=== PATIENT | male | born 1970 | race Caucasian/White ===

== ENCOUNTER 2022-02-03 12:25 | Emergency (ER) | payer BC ==
[~2022-02-03] VITALS: Ht 177.8 cm; Wt 110.7 kg
[2022-02-03] MEDS ORDERED: LIPITOR10 MG PO (13:14)
[2022-02-03] MEDS ORDERED: METFORMIN HCL500 M3 PO (13:14)
[2022-02-03] MEDS ORDERED: LORAZEPAM1 MG PO (13:14)
[2022-02-03] MEDS ORDERED: SEMGLEE (Y100 UNIT/2 SQ (13:15)
[2022-02-03] MEDS ORDERED: LISINOPRIL10 MG PO (13:15)
[2022-02-03] MEDS ORDERED: AMARYL4 MG PO (13:16)
[2022-02-03] MEDS ORDERED: NAPROSYN500 MG PO (14:06)
[2022-02-03] MEDS ORDERED: LIDODERM1 EACH TOP (14:06)
== END 2022-02-03 14:53 | disposition home or self-care (01) ==
LOC: ED 12:25
DX: M77.8 Other enthesopathies, not elsewhere classified (principal); E11.9 Type 2 diabetes mellitus without complications; I10 Essential (primary) hypertension; E78.00 Pure hypercholesterolemia, unspecified; Z79.899 Other long term (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 therapy; Z79.4 Long term (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 of insulin
CPT/HCPCS: 96372; 99283; A9270; J1885

== ENCOUNTER 2022-02-27 23:53 | Emergency (ER) | payer BC ==
[~2022-02-27] VITALS: Ht 177.8 cm; Wt 111.0 kg
[~2022-02-27 23:53] MED LIST: AMARYL4 MG PO; LIDODERM1 EACH TOP; LIPITOR10 MG PO; LISINOPRIL10 MG PO; LORAZEPAM1 MG PO; METFORMIN HCL500 M3 PO; NAPROSYN500 MG PO; SEMGLEE (Y100 UNIT/2 SQ
--- OUTSIDE RECORDS SUMMARY | 2022-02-27 23:58 | XMS ---
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 Tamera has no Care Guidelines for this patient. [facility] (12 MO.) [facility] NOTE: Visits indicate total known visits. ED/C VISIT TRACKING (12 MO.) [facility] COMPLAINT: - LEFT ANKLE PAIN 02/03/2022 12:[address] [facility] [place] TYPE: Emergency COMPLAINT: - R SHOULDER PAIN DIAGNOSES: - Type 2 diabetes mellitus without complications - Other residential (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 therapy - Pure hypercholesterolemia, unspecified - Other enthesopathies, not elsewhere classified - Essential (primary) hypertension - Pain in right shoulder - nursing home (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 of insulin INPATIENT VISIT TRACKING (12 MO.) No inpatient visits to display in this time frame [email or web address]
[2022-02-28] MEDS ORDERED: OMEPRAZOLE40 MG PO (00:09)
== END 2022-02-28 00:42 | disposition home or self-care (01) ==
LOC: ED 23:53
DX: M25.572 Pain in left ankle and joints of left foot (principal); I10 Essential (primary) hypertension; E11.9 Type 2 diabetes mellitus without complications; E78.00 Pure hypercholesterolemia, unspecified; Z79.899 Other long term (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 therapy; Z79.4 Long term (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 of insulin
CPT/HCPCS: 73610; 99283-25

== ENCOUNTER 2022-10-31 21:02 | Emergency (ER) | payer BC ==
[~2022-10-31] VITALS: Ht 172.7 cm; Wt 112.4 kg
--- OUTSIDE RECORDS SUMMARY | ~2022-10-31 | XMS | Continuity of Care Document ---
Demographics + + + | Address | [address] | | | [place] [address] | + + + | Preferred Language | Unknown | + + + | Marital Status | Never | + + + | Faith Affiliation | Unknown | + + + | Race | White | + + + | Ethnic Group | Not or | + + + Author + + + | Author | [facility] | + + + | Organization | [facility] | + + + | Address | [address] | | | [place] [address] | + + + | Phone | | + + + Care Team Providers + + + + | Care Renal Case Manager Name | Role | Phone | + + + + Unavailable | Unavailable | + + + + Unavailable | Unavailable | + + + + Unavailable | Unavailable | + + + + Unavailable | Unavailable | + + + + Allergies and Intolerances + + + + + + | date | description | facility | reaction | severity | + + + + + + | (no date) | Mild [facility] (no reaction[facility] | (no severity) | [facility] | | | + + + + + + | (no date) | TUBERCULIN | [facility] | (no reaction) | (no severity) | | | | [facility] | | | | | | MEDICINE | | | + + + + + + | (no date) | TUBERCULIN | [facility] | (no reaction) | (no severity) | | | [facility] | | | | | | [facility] | | | | | | [facility] | | | | | | | | | + + + + + + | (no date) | TUBERCULIN | [facility] | (no reaction) | (no severity) | | | | [facility] | | | | | | [facility] | | | | | | REHAB | | | + + + + + + | (no date) | TUBERCULIN | [facility] | (no reaction) | (no severity) | | | | [facility] | | | | | | PHYSICAL | | | | | | THERAPY | | | + + + + + + | (no date) | TUBERCULIN | [facility] | (no reaction) | (no severity) | | | | INTERNAL | | | | | | MEDICINE | | | + + + + + + | (no date) | TUBERCULIN | [facility] | (no reaction) | (no severity) | | | | [facility] | | | | | | [facility] | | | | | | [facility] | | | | | | | | | + + + + + + | (no date) | TUBERCULIN | [facility] | (no reaction) | (no severity) | | | | [facility] | | | | | | [facility] WORK[facility] | | | | | | REHAB | | | + + + + + + | (no date) | TUBERCULIN | [facility] | (no reaction) | (no severity) | | | | [facility] | | | | | | PHYSICAL | | | | | | THERAPY | | | + + + + + + | (no date) | TUBERCULIN | [facility] | (no reaction) | (no severity) | | | TESTS | INTERNAL | | | | | | MEDICINE | | | + + + + + + | (no date) | TUBERCULIN | [facility] | (no reaction) | (no severity) | | | TESTS | [facility] | | | | | | [facility] | | | | | | [facility] | | | | | | | | | + + + + + + | (no date) | TUBERCULIN | [facility] | (no reaction) | (no severity) | | | TESTS | [facility] | | | | | | [facility] WORK[facility] | | | | | | REHAB | | | + + + + + + | (no date) | TUBERCULIN | [facility] | (no reaction) | (no severity) | | | TESTS | [facility] | | | | | | PHYSICAL | | | | | | THERAPY | | | + + + + + + | (no date) | TB SKIN SERUM | [facility] | (no reaction) | (no severity) | + + + + + + Encounters No information. Functional Status No information. Immunizations No information. Medications + + + + | date | description | facility | + + + + | 2022-02-03 00:00 | Lidocaine | [facility] | + + + + | 2022-02-03 00:00 | NAPROXEN | [facility] | + + + + | 2022-02-03 00:00 | GLIMEPIRIDE | [facility] | + + + + | 2022-02-28 00:00 | GLIMEPIRIDE | [facility] | + + + + | 2022-02-03 00:00 | Metformin HCl | [facility] | + + + + | 2022-02-28 00:00 | Metformin HCl | [facility] | + + + + | 2020-01-16 00:00 | ibuprofen 600 mg oral | [facility] | | | tablet | MEDICINE | + + + + | 2020-01-16 00:00 | ibuprofen 600 mg oral | [facility] | | | tablet | [facility] | + + + + | 2020-01-16 00:00 | ibuprofen 600 mg oral | [facility] | | | tablet | [facility] | + + + + | 2020-01-16 00:00 | ibuprofen 600 mg oral | [facility] | | | tablet | CTR [facility] | + + + + | 2022-02-03 00:00 | LORAZEPAM | [facility] | + + + + | 2022-02-28 00:00 | OMEPRAZOLE | [facility] | + + + + | 2009-06-24 00:00 | omeprazole 40 mg delayed | [facility] | | | release oral capsule | MEDICINE | + + + + | 2009-06-24 00:00 | omeprazole 40 mg delayed | [facility] | | | release oral capsule | [facility] | + + + + | 2009-06-24 00:00 | omeprazole 40 mg delayed | [facility] | | | release oral capsule | [facility] | + + + + | 2009-06-24 00:00 | omeprazole 40 mg delayed | [facility] | | | release oral capsule | [facility] | + + + + | 2022-02-03 00:00 | Insulin Glargine-Yfgn | [facility] | + + + + | 2022-02-28 00:00 | Insulin Glargine-Yfgn | [facility] | + + + + | 2020-04-05 00:00 | atorvastatin 80 mg oral | [facility] | | | tablet | MEDICINE | + + + + | 2020-04-05 00:00 | atorvastatin 80 mg oral | [facility] | | | tablet | [facility] | + + + + | 2020-04-05 00:00 | atorvastatin 80 mg oral | [facility] | | | tablet | [facility] | + + + + | 2022-02-03 00:00 | LISINOPRIL | [facility] | + + + + | 2022-02-28 00:00 | LISINOPRIL | [facility] | + + + + | 2020-01-18 00:00 | atorvastatin calcium 10 mg | [facility] | | | oral tablet | MEDICINE | + + + + | 2020-01-18 00:00 | atorvastatin calcium 10 mg | [facility] | | | oral tablet | [facility] | + + + + | 2022-02-03 00:00 | ATORVASTATIN | [facility] | + + + + | 2022-02-28 00:00 | ATORVASTATIN | [facility] | + + + + | 2020-04-05 00:00 | metformin hydrochloride | [facility] | | | 500 mg oral tablet | MEDICINE | + + + + | 2020-04-05 00:00 | metformin hydrochloride | [facility] | | | 500 mg oral tablet | [facility] | + + + + | 2020-04-05 00:00 | metformin hydrochloride | [facility] | | | 500 mg oral tablet | [facility] | + + + + Problems + + + + | date | description | facility | + + + + | 1990-03-01 00:00 | gastro-esophageal reflux | [facility] | | | disease | MEDICINE | + + + + | 1990-03-01 00:00 | gastro-esophageal reflux | [facility] | | | disease | [facility] | + + + + | 1990-03-01 00:00 | gastro-esophageal reflux | [facility] | | | disease | [facility] | + + + + | 1990-03-01 00:00 | gastro-esophageal reflux | [facility] | | | disease | [facility] | + + + + | 1990-03-01 00:00 | GERD (gastroesophageal | [facility] | | | reflux disease) | MEDICINE | + + + + | 1990-03-01 00:00 | GERD (gastroesophageal | [facility] | | | reflux disease) | [facility] | + + + + | 1990-03-01 00:00 | GERD (gastroesophageal | [facility] | | | reflux disease) | [facility] | + + + + | 1990-03-01 00:00 | GERD (gastroesophageal | [facility] | | | reflux disease) | [facility] | + + + + | 2020-01-18 00:00 | body mass index 30+ - | [facility] | | | obesity (finding) | MEDICINE | + + + + | 2020-01-18 00:00 | body mass index 30+ - | [facility] | | | obesity (finding) | [facility] | + + + + | 2020-01-18 00:00 | body mass index 30+ - | [facility] | | | obesity (finding) | [facility] | + + + + | 2020-01-18 00:00 | body mass index 30+ - | [facility] | | | obesity (finding) | [facility] | + + + + | 2020-01-18 00:00 | hld - hyperlipidemia | [facility] | | | | MEDICINE | + + + + | 2020-01-18 00:00 | hld - hyperlipidemia | [facility] | | | | [facility] | + + + + | 2020-01-18 00:00 | joint pain (finding) | [facility] | | | | MEDICINE | + + + + | 2020-01-18 00:00 | joint pain (finding) | [facility] | | | | [facility] | + + + + | 2020-01-18 00:00 | joint pain (finding) | [facility] | | | | [facility] | + + + + | 2020-01-18 00:00 | joint pain (finding) | [facility] | | | | [facility] | + + + + | 2020-01-18 00:00 | prediabetes (finding) | [facility] | | | | MEDICINE | + + + + | 2020-01-18 00:00 | prediabetes (finding) | [facility] | | | | [facility] | + + + + | 2020-01-18 00:00 | prediabetes (finding) | [facility] | | | | [facility] | + + + + | 2020-01-18 00:00 | prediabetes (finding) | [facility] | | | | [facility] | + + + + | 2020-01-18 00:00 | sleep apnea (disorder) | [facility] | | | | MEDICINE | + + + + | 2020-01-18 00:00 | sleep apnea (disorder) | [facility] | | | | [facility] | + + + + | 2020-01-18 00:00 | sleep apnea (disorder) | [facility] | | | | [facility] | + + + + | 2020-01-18 00:00 | sleep apnea (disorder) | [facility] | | | | [facility] | + + + + | 2020-01-18 00:00 | Obesity (BMI 30-39.9) | [facility] | | | | MEDICINE | + + + + | 2020-01-18 00:00 | Obesity (BMI 30-39.9) | [facility] | | | | [facility] | + + + + | 2020-01-18 00:00 | Obesity (BMI 30-39.9) | [facility] | | | | [facility] | + + + + | 2020-01-18 00:00 | Obesity (BMI 30-39.9) | [facility] | | | | [facility] | + + + + | 2020-01-18 00:00 | Hyperlipidemia | [facility] | | | | MEDICINE | + + + + | 2020-01-18 00:00 | Hyperlipidemia | [facility] | | | | [facility] | + + + + | 2020-01-18 00:00 | Sleep apnea | [facility] | | | | MEDICINE | + + + + | 2020-01-18 00:00 | Sleep apnea | [facility] | | | | [facility] | + + + + | 2020-01-18 00:00 | Sleep apnea | [facility] | | | | [facility] | + + + + | 2020-01-18 00:00 | Sleep apnea | [facility] | | | | [facility] | + + + + | 2020-01-18 00:00 | Joint pain | [facility] | | | | MEDICINE | + + + + | 2020-01-18 00:00 | Joint pain | [facility] | | | | [facility] | + + + + | 2020-01-18 00:00 | Joint pain | [facility] | | | | [facility] | + + + + | 2020-01-18 00:00 | Joint pain | [facility] | | | | [facility] | + + + + | 2020-01-18 00:00 | Right knee pain | [facility] | | | | MEDICINE | + + + + | 2020-01-18 00:00 | Right knee pain | [facility] | | | | [facility] | + + + + | 2020-01-18 00:00 | Right knee pain | [facility] | | | | [facility] | + + + + | 2020-01-18 00:00 | Right knee pain [facility] | | | [facility] | + + + + | 2020-01-18 00:00 | Prediabetes | [facility] | | | | MEDICINE | + + + + | 2020-01-18 00:00 | Prediabetes | [facility] | | | | [facility] | + + + + | 2020-01-18 00:00 | Prediabetes | [facility] | | | | [facility] | + + + + | 2020-01-18 00:00 | Prediabetes | [facility] | | | | [facility] | + + + + | 2020-02-21 00:00 | arthritis of toe due to | [facility] | | | gout | MEDICINE | + + + + | 2020-02-21 00:00 | arthritis of toe due to | [facility] | | | gout | [facility] | + + + + | 2020-02-21 00:00 | arthritis of toe due to | [facility] | | | gout | [facility] | + + + + | 2020-02-21 00:00 | arthritis of toe due to | [facility] | | | gout | [facility] | + + + + | 2020-02-21 00:00 | Acute gout involving toe | [facility] | | | of left foot | MEDICINE | + + + + | 2020-02-21 00:00 | Acute gout involving toe | [facility] | | | of left foot | [facility] | + + + + | 2020-02-21 00:00 | Acute gout involving toe | [facility] | | | of left foot | [facility] | + + + + | 2020-02-21 00:00 | Acute gout involving toe | [facility] | | | of left foot | [facility] | + + + + | 2020-04-05 00:00 | multiple-type | [facility] | | | hyperlipidemia | MEDICINE | + + + + | 2020-04-05 00:00 | multiple-type | [facility] | | | hyperlipidemia | [facility] | + + + + | 2020-04-05 00:00 | multiple-type | [facility] | | | hyperlipidemia | [facility] | + + + + | 2020-04-05 00:00 | multiple-type | [facility] | | | hyperlipidemia | [facility] | + + + + | 2020-04-05 00:00 | type ii diabetes mellitus | [facility] | | | without complication | MEDICINE | | | (disorder) | | + + + + | 2020-04-05 00:00 | type ii diabetes mellitus | [facility] | | | without complication | [facility] | | | (disorder) | | + + + + | 2020-04-05 00:00 | type ii diabetes mellitus | [facility] | | | without complication | [facility] | | | (disorder) | | + + + + | 2020-04-05 00:00 | type ii diabetes mellitus | [facility] | | | without complication | [facility] | | | (disorder) | | + + + + | 2020-04-05 00:00 | Type 2 diabetes mellitus | [facility] | | | without complication, | MEDICINE | | | without long-term current | | | | use of insulin | | + + + + | 2020-04-05 00:00 | Type 2 diabetes mellitus | [facility] | | | without complication, | [facility] | | | without long-term current | | | | use of insulin | | + + + + | 2020-04-05 00:00 | Type 2 diabetes mellitus | [facility] | | | without complication, | [facility] | | | without long-term current | | | | use of insulin | | + + + + | 2020-04-05 00:00 | Type 2 diabetes mellitus | [facility] | | | without complication, | [facility] | | | without long-term current | | | | use of insulin | | + + + + | 2020-04-05 00:00 | Mixed hyperlipidemia | [facility] | | | | MEDICINE | + + + + | 2020-04-05 00:00 | Mixed hyperlipidemia | [facility] | | | | [facility] | + + + + | 2020-04-05 00:00 | Mixed hyperlipidemia | [facility] | | | | [facility] | + + + + | 2020-04-05 00:00 | Mixed hyperlipidemia | [facility] | | | | [facility] | + + + + | 2022-02-03 00:00 | Tendinitis of right | [facility] | | | shoulder | | + + + + | 2022-02-03 00:00 | Tendinitis of right | [facility] | | | shoulder | | + + + + | 2022-02-03 12:27 | TYPE 2 DIABETES MELLITUS | [facility] | | | WITHOUT COMPLICATIONS | | + + + + | 2022-02-03 12:27 | PURE HYPERCHOLESTEROLEMIA, | [facility] | | | UNSPECIFIED | | + + + + | 2022-02-03 12:27 | Essential (primary) | [facility] | | | hypertension | | + + + + | 2022-02-03 12:27 | PAIN IN RIGHT SHOULDER | [facility] | + + + + | 2022-02-03 12:27 | OTHER ENTHESOPATHIES, NOT | [facility] | | | ELSEWHERE CLASSIFIED | | + + + + | 2022-02-03 12:27 | [facility] (CURRENT) USE OF | [facility] | | | INSULIN | | + + + + | 2022-02-03 12:27 | OTHER 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 (CURRENT) | [facility] | | | DRUG THERAPY | | + + + + | 2022-02-04 07:48 | STRAIN OF MUSCLE AND | [facility] | | | TENDON OF BACK WALL | | + + + + | 2022-02-04 07:48 | STRAIN OF MUSCLE, FASCIA | [facility] | | | AND TENDON OF LOWER BACK, | | | | INIT | | + + + + | 2022-02-27 23:54 | TYPE 2 DIABETES MELLITUS | [facility] | | | WITHOUT COMPLICATIONS | | + + + + | 2022-02-27 23:54 | PURE HYPERCHOLESTEROLEMIA, | [facility] | | | UNSPECIFIED | | + + + + | 2022-02-27 23:54 | Essential (primary) | [facility] | | | hypertension | | + + + + | 2022-02-27 23:54 | PAIN IN LEFT ANKLE AND | [facility] | | | JOINTS OF LEFT FOOT | | + + + + | 2022-02-27 23:54 | [facility] (CURRENT) USE OF | [facility] | | | INSULIN | | + + + + | 2022-02-27 23:54 | OTHER TEST BORING CREW CHIEF (CURRENT) | [facility] | | | DRUG THERAPY | | + + + + | 2022-02-28 00:00 | Left ankle pain | [facility] | + + + + | 2022-06-15 10:49 | OTHER CHRONIC PAIN | [facility] | + + + + | 2022-06-15 10:49 | PAIN IN RIGHT KNEE | [facility] | + + + + | 2022-06-15 10:49 | PAIN IN LEFT KNEE | [facility] | + + + + | 2022-06-15 10:49 | UNSPECIFIED ENTHESOPATHY, | [facility] | | | LOWER LIMB, EXCLUDING FO | | + + + + | 2022-08-28 10:49 | CHEST PAIN, UNSPECIFIED | [facility] | + + + + | 2022-08-28 11:00 | CHEST PAIN, UNSPECIFIED | [facility] | + + + + Procedures No information. Results/Labs No information. Social History + + + + | date | description | facility | + + + + | 1986-11-07 00:00 | Current every day smoker | [facility] | | | | MEDICINE | + + + + | 1986-11-07 00:00 | Current every day smoker | [facility] | | | | [facility] | + + + + | 1986-11-07 00:00 | [facility] | [facility] | | | | [facility] | + + + + | 1986-11-07 00:00 | Current smoker | [facility] | | | | [facility] | + + + + | 1986-11-07 00:00 | Smoker | [facility] | | | | MEDICINE | + + + + | 1986-11-07 00:00 | Smoker | [facility] | | | | [facility] | + + + + | 1986-11-07 00:00 | Smoker | [facility] | | | | [facility] | + + + + | 1986-11-07 00:00 | Sm[facility] | [facility] | | | | [facility] | + + + + | 2020-01-23 00:00 | Former smoker | [facility] | | | | [facility] | + + + + | 2020-02-21 00:00 | Former smoker | [facility] | | | | [facility] | + + + + | 2020-04-01 00:00 | Current every day smoker | [facility] | | | | MEDICINE | + + + + | 2020-04-05 00:00 | Current every day smoker | [facility] | | | | MEDICINE | + + + + | 2020-04-05 00:00 | Current every day smoker | [facility] | | | | [facility] | + + + + | 2020-04-23 00:00 | Current every day smoker | [facility] | | | | MEDICINE | + + + + | 2020-04-23 00:00 | Current [facility] day smoker | [facility] | | | | [facility] | + + + + | 2020-04-23 00:00 | Current every day smoker | [facility] | | | | [facility] | + + + + | 2022-02-03 00:00 | Unknown if ever smoked | [facility] | + + + + | 2022-02-28 00:00 | Unknown if ever smoked | [facility] | + + + + Vital Signs + + + +---------+ | date | measurement | value | units | + + + +---------+ | 2020-04-01 00:00 | BMI | 36.78 | kg/m2 | + + + +---------+ | 2020-04-01 00:00 | BP_diastolic | 75 | mmHg | + + + +---------+ | 2020-04-01 00:00 | BP_systolic | 119 | mmHg | + + + +---------+ | 2020-04-01 00:00 | heart_rate | 96 | /min | + + + +---------+ | 2020-04-01 00:00 | height_metric | 172.7 | cm | + + + +---------+ | 2020-04-01 00:00 | height_standard | 67.99 | in | + + + +---------+ | 2020-04-01 00:00 | o2_saturation | 99 | % | + + + +---------+ | 2020-04-01 00:00 | respiration_rate | 14 | /min | + + + +---------+ | 2020-04-01 00:00 | weight_metric | 109.72 | kg | + + + +---------+ | 2020-04-01 00:00 | weight_standard | 241.9 | lb | + + + +---------+ | 2022-02-03 00:00 | BMI | 35.0 | kg/m2 | + + + +---------+ | 2022-02-03 00:00 | BP_diastolic | 85 | mmHg | + + + +---------+ | 2022-02-03 00:00 | BP_systolic | 135 | mmHg | + + + +---------+ | 2022-02-03 00:00 | heart_rate | 88 | /min | + + + +---------+ | 2022-02-03 00:00 | height_metric | 177.8 | cm | + + + +---------+ | 2022-02-03 00:00 | height_standard | 70 | in | + + + +---------+ | 2022-02-03 00:00 | o2_saturation | 98 | % | + + + +---------+ | 2022-02-03 00:00 | respiration_rate | 16 | /min | + + + +---------+ | 2022-02-03 00:00 | temperature_metric | 36.22 | C | | | | | | + + + +---------+ | 2022-02-03 00:00 | | 97.2 | F | | | temperature_standar | | | | | d | | | + + + +---------+ | 2022-02-03 00:00 | weight_metric | 110.68 | kg | + + + +---------+ | 2022-02-03 00:00 | weight_standard | 244 | lb | + + + +---------+ | 2022-02-03 00:00 | weight_standard | 244.01 | lb | + + + +---------+ | 2022-02-28 00:00 | BMI | 35.1 | kg/m2 | + + + +---------+ | 2022-02-28 00:00 | BP_diastolic | 87 | mmHg | + + + +---------+ | 2022-02-28 00:00 | BP_systolic | 150 | mmHg | + + + +---------+ | 2022-02-28 00:00 | heart_rate | 95 | /min | + + + +---------+ | 2022-02-28 00:00 | height_metric | 177.8 | cm | + + + +---------+ | 2022-02-28 00:00 | height_standard | 70 | in | + + + +---------+ | 2022-02-28 00:00 | o2_saturation | 96 | % | + + + +---------+ | 2022-02-28 00:00 | respiration_rate | 20 | /min | + + + +---------+ | 2022-02-28 00:00 | temperature_metric | 36.94 | C | | | | | | + + + +---------+ | 2022-02-28 00:00 | | 98.5 | F | | | temperature_standar | | | | | d | | | + + + +---------+ | 2022-02-28 00:00 | weight_metric | 111 | kg | + + + +---------+ | 2022-02-28 00:00 | weight_standard | 244.71 | lb | + + + +---------+"
--- OUTSIDE RECORDS SUMMARY | ~2022-10-31 | XMS | Continuity of Care Document ---
Demographics + + + | Address | [address] [facility] [address] [address] | | | [place] [address] | + + + | Preferred Language | Unknown | + + + | Marital Status | Never | + + + | Moravian Affiliation | Unknown | + + + | Race | White | + + + | Ethnic Group | Not or | + + + Author + + + | Author | [facility] | + + + | Organization | [facility] | + + + | Address | [address] | | | [place] [address] | + + + | Phone | | + + + Care Team Providers + + + + | Care Power Plant Superintendent Name | Role | Phone | + [...] + | (no date) | TUBERCULIN | [facility] | (no reaction) | (no severity) | | | | [facility] Group | | | | | | [facility] | | | | | | [facility] | | | | | | | | | + + + + + + | (no date) | TUBERCULIN | [facility] | (no reaction) | (no severity) | | | | [facility] | | | | | | CTR WORK[facility] | | | | | | REHAB | | | + + + + + + | (no date) | TUBERCULIN | [facility] | (no reaction) | (no severity) | | | | [facility] | | | | | [...] + | (no date) | TUBERCULIN | [facility] | (no reaction) | (no severity) | | | | Medical Group | | | | | | [facility] | | | | | | [facility] | | | | | | | | | + + + + + + | (no date) | TUBERCULIN | [facility] | (no reaction) | (no severity) | | | | [facility] | | | | | | [...] + | (no date) | TUBERCULIN | [facility] | (no reaction) | (no severity) | | | TESTS | Medical Group | | | | | | [facility] | | | | | | [facility] | | | | | | | | | + + + + + + | (no date) | TUBERCULIN | [facility] | (no reaction) | (no severity) | | | TESTS | [facility] | | | | | | CTR WORKER | | | | | | REHAB | | | + + + + + + | (no date) | TUBERCULIN | [facility] | (no reaction) | (no severity) | | | TESTS | [facility] | | | | | [...] + | 2022-02-03 00:00 | Lidocaine | [facility] | + + + + | 2022-02-03 00:00 | NAPROXEN | [facility] | + + + + | 2022-02-03 00:00 | GLIMEPIRIDE | [facility] | + + + + | 2022-02-28 00:00 | GLIMEPIRIDE | [facility] | + + + + | 2022-02-03 00:00 | Metformin HCl | [facility] | + + + + | 2022-02-28 00:00 | Metformin HCl | [facility] | + + + + | 2020-01-16 00:00 | ibuprofen 600 mg oral | [facility] | | | tablet | MEDICINE | + + + + | 2020-01-16 00:00 | ibuprofen 600 mg oral | [facility] | | | tablet | [facility] | + + + + | 2020-01-16 00:00 | ibuprofen 600 mg oral | [facility] | | | tablet | [facility] WORK[facility] RE[facility] | + + + + | 2020-01-16 00:00 | ibuprofen 600 mg oral | [facility] | | | tablet | CTR PHYSICAL THERAPY | + + + + | 2022-02-03 00:00 | LORAZEPAM | [facility] | + + + + | 2022-02-28 00:00 | OMEPRAZOLE | [facility] | + + + + | 2009-06-24 00:00 | omeprazole 40 mg delayed | [facility] | | | release oral capsule | MEDICINE | + + + + | 2009-06-24 00:00 | omeprazole 40 mg delayed | [facility] | | | release oral capsule | [facility] | + + + + | 2009-06-24 00:00 | omeprazole 40 mg delayed | [facility] | | | release oral capsule | CTR WORKER REHAB | + + + + | 2009-06-24 00:00 | omeprazole 40 mg delayed | [facility] | | | release oral capsule | CTR PHYSICAL THERAPY | + + + + | 2022-02-03 00:00 | Insulin Glargine-Yfgn | [facility] | + + + + | 2022-02-28 00:00 | Insulin Glargine-Yfgn | [facility] | + + + + | 2020-04-05 00:00 | atorvastatin 80 mg oral | [facility] | | | tablet | MEDICINE | + + + + | 2020-04-05 00:00 | atorvastatin 80 mg oral | [facility] | | | tablet | CTR WORK[facility] RE[facility] | + + + + | 2020-04-05 00:00 | atorvastatin 80 mg oral | [facility] | | | tablet | CTR PHYSICAL [facility]AP[facility] | + + + + | 2022-02-03 00:00 | LISINOPRIL | [facility] | + + + + | 2022-02-28 00:00 | LISINOPRIL | [facility] | + + + + | 2020-01-18 00:00 | atorvastatin calcium 10 mg | [facility] | | | oral tablet | MEDICINE | + + + + | 2020-01-18 00:00 | atorvastatin calcium 10 mg | [facility] | | | oral tablet | [facility] | + + + + | 2022-02-03 00:00 | ATORVASTATIN | [facility] | + + + + | 2022-02-28 00:00 | ATORVASTATIN | [facility] | + + + + | 2020-04-05 00:00 | metformin hydrochloride | [facility] | | | 500 mg oral tablet | MEDICINE | + + + + | 2020-04-05 00:00 | metformin hydrochloride | [facility] | | | 500 mg oral tablet | CTR WORKER RE[facility]AB | + + + + | 2020-04-05 00:00 | metformin hydrochloride | [facility] | | | 500 mg oral tablet | CTR PHYSICAL THERAPY | + + + + Problems + + + + | date | description | facility | + + + + | 1990-03-01 00:00 | gastro-esophageal reflux | [facility] | | | disease | MEDICINE | + + + + | 1990-03-01 00:00 | gastro-esophageal reflux | [facility] | | | disease | [facility] | + + + + | 1990-03-01 00:00 | gastro-esophageal reflux | [facility] | | | disease | [facility] WORK[facility] REH[facility] | + + + + | 1990-03-01 00:00 | gastro-esophageal reflux | [facility] | | | disease | CTR PHYS[facility] | + + + + | 1990-03-01 00:00 | GERD (gastroesophageal | [facility] | | | reflux disease) | MEDICINE | + + + + | 1990-03-01 00:00 | GERD (gastroesophageal | [facility] | | | reflux disease) | [facility] | + + + + | 1990-03-01 00:00 | GERD (gastroesophageal | [facility] | | | reflux disease) | [facility] WORK[facility] RE[facility] | + + + + | 1990-03-01 00:00 | GERD (gastroesophageal | [facility] | | | reflux disease) | [facility] | + + + + | 2020-01-18 00:00 | body mass index 30+ - | [facility] | | | obesity (finding) | MEDICINE | + + + + | 2020-01-18 00:00 | body mass index 30+ - | [facility] | | | obesity (finding) | [facility] | + + + + | 2020-01-18 00:00 | body mass index 30+ - | [facility] | | | obesity (finding) | CTR WORK[facility] RE[facility] | + + + + | 2020-01-18 00:00 | body mass index 30+ - | [facility] | | | obesity (finding) | CTR [facility] | + + + + | 2020-01-18 00:00 | hld - hyperlipidemia | [facility] | | | | MEDICINE | + + + + | 2020-01-18 00:00 | hld - hyperlipidemia | [facility] | | | | [facility] | + + + + | 2020-01-18 00:00 | joint pain (finding) | [facility] | | | | MEDICINE | + + + + | 2020-01-18 00:00 | joint pain (finding) | [facility] | | | | [facility] | + + + + | 2020-01-18 00:00 | joint pain (finding) | [facility] | | | | [facility] | + + + + | 2020-01-18 00:00 | joint pain (finding) | [facility] | | | | CTR PH[facility] | + + + + | 2020-01-18 00:00 | prediabetes (finding) | [facility] | | | | MEDICINE | + + + + | 2020-01-18 00:00 | prediabetes (finding) | [facility] | | | | [facility] | + + + + | 2020-01-18 00:00 | prediabetes (finding) | [facility] | | | | [facility] WORK[facility] | + + + + | 2020-01-18 00:00 | prediabetes (finding) | [facility] | | | | CTR [facility] | + + + + | 2020-01-18 00:00 | sleep apnea (disorder) | [facility] | | | | MEDICINE | + + + + | 2020-01-18 00:00 | sleep apnea (disorder) | [facility] | | | | [facility] | + + + + | 2020-01-18 00:00 | sleep apnea (disorder) | [facility] | | | | [facility] WORK[facility] | + + + + | 2020-01-18 00:00 | sleep apnea (disorder) | [facility] | | | | CTR PH[facility]AP[facility] | + + + + | 2020-01-18 00:00 | Obesity (BMI 30-39.9) | [facility] | | | | MEDICINE | + + + + | 2020-01-18 00:00 | Obesity (BMI 30-39.9) | [facility] | | | | [facility] | + + + + | 2020-01-18 00:00 | Obesity (BMI 30-39.9) | [facility] | | | | [facility] WORK[facility] RE[facility] | + + + + | 2020-01-18 00:00 | Obesity (BMI 30-39.9) | [facility] | | | | CTR PHYS[facility]AP[facility] | + + + + | 2020-01-18 00:00 | Hyperlipidemia | [facility] | | | | MEDICINE | + + + + | 2020-01-18 00:00 | Hyperlipidemia | [facility] | | | | [facility] | + + + + | 2020-01-18 00:00 | Sleep apnea | [facility] | | | [facility] | + + + + | 2020-01-18 00:00 | Sleep apnea | [facility] | | | | [facility] | + + + + | 2020-01-18 00:00 | Sleep apnea | [facility] | | | | [facility] | + + + + | 2020-01-18 00:00 | [facility] apnea | [facility] | | | | CTR PH[facility] | + + + + | 2020-01-18 00:00 | Joint pain | [facility] | | | | MEDICINE | + + + + | 2020-01-18 00:00 | Joint pain | [facility] | | | | [facility] | + + + + | 2020-01-18 00:00 | Joint pain | [facility] | | | | CTR WORK[facility] | + + + + | 2020-01-18 00:00 | Joint pain | [facility] | | | | CTR PHYSICAL TH[facility]AP[facility] | + + + + | 2020-01-18 00:00 | Right knee pain | [facility] | | | | MEDICINE | + + + + | 2020-01-18 00:00 | Right knee pain | [facility] | | | | [facility] | + + + + | 2020-01-18 00:00 | Right knee pain | [facility] | | | | [facility] WORK[facility] RE[facility] | + + + + | 2020-01-18 00:00 | Right knee pain | [facility] | | | | CTR PH[facility] | + + + + | 2020-01-18 00:00 | Prediabetes | [facility] | | | | MEDICINE | + + + + | 2020-01-18 00:00 | Prediabetes | [facility] | | | | [facility] | + + + + | 2020-01-18 00:00 | Prediabetes | [facility] | | | | [facility] | + + + + | 2020-01-18 00:00 | Prediabetes | [facility] | | | | CTR PH[facility]AP[facility] | + + + + | 2020-02-21 00:00 | arthritis of toe due to | [facility] | | | gout | MEDICINE | + + + + | 2020-02-21 00:00 | arthritis of toe due to | [facility] | | | gout | [facility] | + + + + | 2020-02-21 00:00 | arthritis of toe due to | [facility] | | | gout | [facility] | + + + + | 2020-02-21 00:00 | arthritis of toe due to | [facility] | | | gout | CTR PH[facility]AP[facility] | + + + + | 2020-02-21 00:00 | Acute gout involving toe | [facility] | | | of left foot | MEDICINE | + + + + | 2020-02-21 00:00 | Acute gout involving toe | [facility] | | | of left foot | [facility] | + + + + | 2020-02-21 00:00 | Acute gout involving toe | [facility] | | | of left [...] + | 2020-04-05 00:00 | multiple-type | [facility] | | | hyperlipidemia | [facility] | + + + + | 2020-04-05 00:00 | multiple-type | [facility] | | | hyperlipidemia | [facility] | + + + + | 2020-04-05 00:00 | multiple-type | [facility] | | | hyperlipidemia | CTR PH[facility]AP[facility] | + + + + | 2020-04-05 00:00 | type ii diabetes mellitus | [facility] | | | without complication | MEDICINE | | | (disorder) | | + + + + | 2020-04-05 00:00 | type ii diabetes mellitus | [facility] | | | without complication | [facility] | | | (disorder) | | + + + + | 2020-04-05 00:00 | type ii diabetes mellitus | [facility] | | | without complication | [facility] | | | (disorder) | | + + + + | 2020-04-05 00:00 | type ii diabetes mellitus | [facility] | | | without complication | [...] 00:00 | Type 2 diabetes mellitus | [facility] | | | without complication, | [facility] | | | without long-term current | | | | use of insulin | | + + + + | 2020-04-05 00:00 | Type 2 diabetes mellitus | [facility] | | | without complication, | [facility] | | | without long-term current | | | | use of insulin | | + + + + | 2020-04-05 00:00 | Type 2 diabetes mellitus | [facility] | | | without complication, | [facility] | | | without long-term current | | | | use of insulin | | + + + + | 2020-04-05 00:00 | Mixed hyperlipidemia | [facility] | | | | MEDICINE | + + + + | 2020-04-05 00:00 | Mixed hyperlipidemia | [facility] | | | | [facility] | + + + + | 2020-04-05 00:00 | Mixed hyperlipidemia | [facility] | | | | [facility] | + + + + | 2020-04-05 00:00 | Mixed hyperlipidemia | [facility] | | | | CTR PHYSICAL TH[facility]APY | + + + + | 2022-02-03 00:00 | Tendinitis of right | [facility] | | | shoulder | | + + + + | 2022-02-03 00:00 | Tendinitis of right | [facility] | | | shoulder | | + [...] + + + | 2022-02-03 12:27 | NURSING HOME (CURRENT) USE OF | [facility] | | | INSULIN | | + + + + | 2022-02-03 12:27 | OTHER PRODUCTION MAINTENANCE MECHANIC (CURRENT) | [facility] | | | DRUG [...] + + + | 2022-02-27 23:54 | NURSING HOME (CURRENT) USE OF | [facility] | | | INSULIN | | + + + + | 2022-02-27 23:54 | OTHER PRODUCTION MAINTENANCE MECHANIC (CURRENT) | [facility] | | | DRUG THERAPY | | + + + + | 2022-02-28 00:00 | Left ankle pain | [facility] | + + + + | 2022-06-15 [...] 00:00 | Current every day smoker | [facility] | | | | CTR WORK[facility] RE[facility] | + + + + | 1986-11-07 00:00 | Current every day smoker | [facility] | | | | [facility] | + + + + | 1986-11-07 00:00 | Current smoker | [facility] | | | | [facility] | + + + + | 1986-11-07 00:00 | Smoker | [facility] | | | | MEDICINE | + + + + | 1986-11-07 00:00 | Smoker | [facility] | | | | [facility] | + + + + | 1986-11-07 00:00 | Smoker | [facility] | | | | [facility] | + + + + | 1986-11-07 00:00 | Smoker | [facility] | | | | CTR [facility] | + + + + | 2020-01-23 00:00 | Former smoker | [facility] | | | | [facility] | + + + + | 2020-02-21 00:00 | Former smoker | [facility] | | | | [facility] | + + + + | 2020-04-01 00:00 | Current every day smoker | [facility] | | | | MEDICINE | + + + + | 2020-04-05 00:00 | Current every day smoker | [facility] | | | | MEDICINE | + + + + | 2020-04-05 00:00 | Current every day smoker | [facility] | | | | [facility] | + + + + | 2020-04-23 00:00 | Current every day smoker | [facility] | | | | MEDICINE | + + + + | 2020-04-23 00:00 | Current every day smoker | [facility] | | | | [facility] | + + + + | 2020-04-23 00:00 | Current every day smoker | [facility] | | | | CTR PH[facility] | + + + + | 2022-02-03 00:00 | Unknown if ever smoked | [facility] | + + + + | 2022-02-28 00:00 | Unknown if ever smoked | [facility] | + + + + Vital Signs [...]
[~2022-10-31 21:02] MED LIST changes: +OMEPRAZOLE40 MG PO
[2022-10-31] MEDS ORDERED: TRULICITY1.5 MG/0.5 SUB-Q (21:12)
[2022-10-31 21:53] LABS: BILIRUBIN, URINE NEGATIVE (negative); BLOOD/HGB, URINE TRACE-I (Negative); KETONE, URINE NEGATIVE (Negative); LEUK ESTERASE, URINE NEGATIVE (negative); NITRITE, URINE NEGATIVE (negative)
[2022-10-31 21:55] LABS: AMPHETAMINES, UR NEGATIVE (NEGATIVE); BARBITURATES, UR NEGATIVE (NEGATIVE); BENZODIAZEPINES, UR NEGATIVE (NEGATIVE); BUPRENORPHINE,UR NEGATIVE (NEGATIVE); COCAINE, UR NEGATIVE (NEGATIVE); EPITHELIAL CELLS, URINE 0 /lpf (0-1+); MARIJUANA (THC), UR NEGATIVE (NEGATIVE); MDMA, UR NEGATIVE (NEGATIVE); METHADONE, UR NEGATIVE (NEGATIVE); METHAMPHETAMINE, UR NEGATIVE (NEGATIVE); OPIATES, UR NEGATIVE (NEGATIVE); OXYCODONE, UR NEGATIVE (NEGATIVE); PHENCYCLIDINE, UR NEGATIVE (NEGATIVE); REFLEX CULTURE, URINE No (No); TRICYCLIC ANTIDEPRESSANT, UR NEGATIVE (NEGATIVE); WHITE BLOOD CELLS, URINE 0-1 /HPF (0-5)
[2022-10-31 22:12] LABS: BASOPHILS 1.5 % (0-2); EOSINOPHILS 2.8 % (0-6); HEMOGLOBIN 13.3 g/dL (12.0-18.0); LYMPHOCYTES 21.1 % (24-44); MCH 28.8 (27-36); MCHC 34.1 g/dl (30-36); MCV 84.4 fl (81-99); MONOCYTES 4.6 % (0-12); PLATELET COUNT 240 K/uL (140-440); RBC 4.63 M/ul (4.3-5.7); RDW 14.1 (10.5-15.0)
[2022-10-31 22:23] LABS: ALBUMIN 2.9 g/dL (3.4-5.0); ALBUMIN/GLOBULIN RATIO 0.67 (1.1-2.4); ANION GAP 14.4 (7-21); BILIRUBIN, TOTAL 0.4 ng/dL (0.2-1.0); BUN/CREATININE RATIO 17.46 (6.0-28.6); CALCIUM 8.9 mg/dL (8.5-10.1); CREATININE, SERUM 1.26 mg/dL (0.70-1.30); POTASSIUM 4.4 mmol/L (3.5-5.1); PROTEIN, TOTAL 7.2 g/dL (6.4-8.2)
[2022-10-31 22:27] LABS: LACTIC ACID, BLOOD 1.7 mmol/L (0.4-2.0)
[2022-10-31] MEDS ORDERED: DOXYCYCLINE HY100 MG PO (22:39)
[2022-10-31 23:31] VITALS: BP 119/87
== END 2022-10-31 23:31 | disposition home or self-care (01) ==
LOC: ED 21:02
PROVIDERS: Internal Medicine
DX: L03.116 Cellulitis of left lower limb (principal); R00.0 Tachycardia, unspecified; E11.65 Type 2 diabetes mellitus with hyperglycemia; E87.1 Hypo-osmolality and hyponatremia; E78.00 Pure hypercholesterolemia, unspecified; I10 Essential (primary) hypertension; K21.9 Gastro-esophageal reflux disease without esophagitis; Z88.8 Allergy status to other drugs, medicaments and biological substances; Z79.4 Long term (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 of insulin; Z79.84 Long term (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 of oral hypoglycemic drugs; Z79.899 Other long term (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 therapy
CPT/HCPCS: 36415; 71045; 80053; 81001; 83605; 85025; 96365; 99283-25; J0696; J7030

== ENCOUNTER 2022-11-13 22:19 | Emergency (ER) | payer BC ==
[~2022-11-13] VITALS: Ht 172.7 cm; Wt 112.0 kg
[~2022-11-13 22:19] MED LIST changes: +DOXYCYCLINE HY100 MG PO; +TRULICITY1.5 MG/0.5 SUB-Q
--- OUTSIDE RECORDS SUMMARY | 2022-11-13 22:23 | XMS ---
PreManage Notification: ONIEL ORTIZ Security Transcription Coordinator Events No recent Security Events currently on file CRITERIA MET - [facility] - 2 Visits in 30 Days CARE PROVIDERS There are no care providers on record at this time. Tamera has no Care Guidelines for this patient. [place] [facility] MO[facility] NOTE: Visits indicate total known visits. ED/C VISIT TRACKING (12 MO.) 11/13/2022 22:19 [facility] [place] TYPE: Emergency COMPLAINT: - WEAKNESS 10/31/2022 21:03 [facility] [place] TYPE: Emergency COMPLAINT: - L LEG PAIN DIAGNOSES: - Allergy status to other drugs, medicaments and biological substances - Cellulitis of left lower limb - Essential (primary) hypertension - Gastro-esophageal reflux disease without esophagitis - Hypo-osmolality and hyponatremia - intermediate manager (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 of insulin - intermediate manager (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 of oral hypoglycemic drugs - Other assisted (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 therapy - Pain in left leg - Pure hypercholesterolemia, unspecified - Tachycardia, unspecified - Type 2 diabetes mellitus with hyperglycemia 02/27/2022 23:54 [facility] [place] TYPE: Emergency COMPLAINT: - LEFT ANKLE PAIN DIAGNOSES: - Essential (primary) hypertension - alf (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 of insulin - Other intermediate manager (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 therapy - Pain in left ankle and joints of left foot - Pure hypercholesterolemia, unspecified - Type 2 diabetes mellitus without complications 02/03/2022 12:27 [facility] [place] TYPE: Emergency COMPLAINT: - R SHOULDER PAIN DIAGNOSES: - Essential (primary) hypertension - alf (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 of insulin - Other enthesopathies, not elsewhere classified - Other intermediate manager (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 therapy - Pain in right shoulder - Pure hypercholesterolemia, unspecified - Type 2 diabetes mellitus without complications INPATIENT VISIT TRACKING (12 MO.) No inpatient visits to display in this time frame [id number]
[2022-11-14 01:30] VITALS: BP 131/80
== END 2022-11-14 01:31 | disposition other institution, planned readmission (95) ==
LOC: ED 22:19
DX: Z53.21 Procedure and treatment not carried out due to patient leaving prior to being seen by health care provider (principal)

== ENCOUNTER 2022-11-20 02:53 | Emergency (ER) | payer BC ==
[~2022-11-20] VITALS: Ht 172.7 cm; Wt 111.1 kg
--- OUTSIDE RECORDS SUMMARY | ~2022-11-20 | XMS | Continuity of Care Document ---
Demographics + + + | Address | [address] | | | [place] [address] | + + + | Preferred Language | Unknown | + + + | Marital Status | Never | + + + | Uatsdin Affiliation | Unknown | + + + | Race | White | + + + | Ethnic Group | Not or | + + + Author + + + | Author | [facility] | + + + | Organization | [facility] | + + + | Address | [address] | | | [place], [place] [address] | + + + | Phone | | + + + Care Team Providers + + + + | Care Studio Data Analyst Name | Role | Phone | + + + + Unavailable | Unavailable | + + + + Allergies No information. Encounters No information. Functional Status No information. Immunizations No information. Medications No information. Problems + + + + | date | description | facility | + + + + | 2022-08-28 10:49 | CHEST PAIN, UNSPECIFIED | [facility] | + + + + | 2022-08-28 11:00 | CHEST PAIN, UNSPECIFIED | [facility] | + + + + | 2022-10-31 21:03 | TYPE 2 DIABETES MELLITUS | [facility] | | | WITH HYPERGLYCEMIA | | + + + + | 2022-10-31 21:03 | PURE HYPERCHOLESTEROLEMIA, | [facility] | | | UNSPECIFIED | | + + + + | 2022-10-31 21:03 | HYPO-OSMOLALITY AND | [facility] | | | HYPONATREMIA | | + + + + | 2022-10-31 21:03 | Essential (primary) | [facility] | | | hypertension | | + + + + | 2022-10-31 21:03 | GASTRO-ESOPHAGEAL REFLUX | [facility] | | | DISEASE WITHOUT ESOPHAGIT | | + + + + | 2022-10-31 21:03 | CELLULITIS OF LEFT LOWER | [facility] | | | LIMB | | + + + + | 2022-10-31 21:03 | PAIN IN LEFT LEG | [facility] | + + + + | 2022-10-31 21:03 | TACHYCARDIA, UNSPECIFIED | [facility] | + + + + | 2022-10-31 21:03 | HALF-WAY (CURRENT) USE OF | [facility] | | | INSULIN | | + + + + | 2022-10-31 21:03 | HALF-WAY (CURRENT) USE OF | [facility] | | | ORAL HYPOGLYCEMIC DRUGS | | + + + + | 2022-10-31 21:03 | OTHER HALF-WAY (CURRENT) | [facility] | | | DRUG THERAPY | | + + + + | 2022-10-31 21:03 | ALLERGY STATUS TO OTH | [facility] | | | DRUG/MEDS/BIOL SUBST STATUS | | | | | | + + + + | 2022-11-13 22:19 | Dizziness and giddiness | [facility] | + + + + | 2022-11-13 22:19 | PROC/TRTMT NOT CRD OUT D/T | [facility] | | | PT LV BEF SEEN BY [facility] | | + + + + Procedures No information. Results/Labs No information. Social History +--------+ + + | date | description | facility | +--------+ + + Vital Signs No information."
--- OUTSIDE RECORDS SUMMARY | ~2022-11-20 | XMS | Continuity of Care Document ---
Demographics + + + | Address | [address] | | | [place] [address] | + + + | Preferred Language | Unknown | + + + | Marital Status | Never | + + + | Yazdanism Affiliation | Unknown | + + + | Race | White | + + + | Ethnic Group | Not or | + + + Author + + + | Author | [facility] | + + + | Organization | [facility] | + + + | Address | [address] | | | [place], [place] [address] | + + + | Phone | | + + + Care Team Providers + + + + | Care Selling Underwriter Name | Role | Phone | + [...] + + + | 2022-10-31 21:03 | CORRECTION (CURRENT) USE OF | [facility] | | | INSULIN | | + + + + | 2022-10-31 21:03 | CORRECTION (CURRENT) USE OF | [facility] | | | ORAL HYPOGLYCEMIC DRUGS | | + + + + | 2022-10-31 21:03 | OTHER CORRECTION (CURRENT) | [facility] | | | DRUG [...]
--- OUTSIDE RECORDS SUMMARY | 2022-11-20 02:57 | XMS ---
PreManage Notification: ONIEL ORTIZ Security Special Educator Events No recent Security Events currently on file CRITERIA MET - [facility] - 2 Visits in 30 Days CARE PROVIDERS There are no care providers on record at this time. Tamera has no Care Guidelines for this patient. [place] VIS[facility] (12 MO.) [facility] T[facility] NOTE: Visits indicate total known visits. ED/C VISIT TRACKING (12 MO.) 11/20/2022 02:54 [facility] [place] TYPE: Emergency COMPLAINT: - L FOOT PAIN 11/13/2022 22:19 [facility] [place] TYPE: Emergency COMPLAINT: - WEAKNESS DIAGNOSES: - Dizziness and giddiness - Procedure and treatment not carried out due to patient leaving prior to being seen by health care provider 10/31/2022 21:03 [facility] [place] TYPE: Emergency COMPLAINT: - L LEG PAIN DIAGNOSES: - Allergy status to other drugs, medicaments and biological substances - Cellulitis of left lower limb - Essential (primary) hypertension - Gastro-esophageal reflux disease without esophagitis - Hypo-osmolality and hyponatremia - bed bug exterminator (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 of insulin - care home (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 of oral hypoglycemic drugs - Other half-way (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 therapy - Pain in left leg - Pure hypercholesterolemia, unspecified - Tachycardia, unspecified - Type 2 diabetes mellitus with hyperglycemia 02/27/2022 23:54 [facility] [place] TYPE: Emergency COMPLAINT: - LEFT ANKLE PAIN DIAGNOSES: - Essential (primary) hypertension - care home (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 of insulin - Other termite control service representative (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 therapy - Pain in left ankle and joints of left foot - Pure hypercholesterolemia, unspecified - Type 2 diabetes mellitus without complications 02/03/2022 12:[address] [facility] [place] TYPE: Emergency COMPLAINT: - R SHOULDER PAIN DIAGNOSES: - Essential (primary) hypertension - care home (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 of insulin - Other enthesopathies, not elsewhere classified - Other half-way (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 therapy - Pain in right shoulder - Pure hypercholesterolemia, unspecified - Type 2 diabetes mellitus without complications INPATIENT VISIT TRACKING (12 MO.) No inpatient visits to display in this time frame [id number]
[2022-11-20] MEDS ORDERED: DOXYCYCLINE MO100 MG PO (03:14)
[2022-11-20] MEDS ORDERED: ICOSAPENT ETHYL1 GM PO (03:14)
[2022-11-20] MEDS ORDERED: SEMGLEE (Y100 UNIT/2 SQ (03:14)
[2022-11-20] MEDS ORDERED: VALACYCLOVIR1000 MG PO (03:14)
[2022-11-20 03:54] VITALS: BP 122/86
== END 2022-11-20 03:55 | disposition home or self-care (01) ==
LOC: ED 02:53
DX: R60.0 Localized edema (principal); L03.116 Cellulitis of left lower limb; E11.9 Type 2 diabetes mellitus without complications; I10 Essential (primary) hypertension; Z88.8 Allergy status to other drugs, medicaments and biological substances; Z79.4 Long term (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 of insulin; Z79.84 Long term (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 of oral hypoglycemic drugs; Z79.899 Other long term (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 therapy
CPT/HCPCS: 93971; 99284-25

== ENCOUNTER 2022-12-16 10:54 | Emergency (ER) | payer BC ==
[~2022-12-16] VITALS: Ht 172.7 cm; Wt 111.1 kg
[~2022-12-16 10:54] MED LIST changes: +DOXYCYCLINE MO100 MG PO; +ICOSAPENT ETHYL1 GM PO; +VALACYCLOVIR1000 MG PO
--- OUTSIDE RECORDS SUMMARY | 2022-12-16 10:56 | XMS ---
PreManage Notification: ONIEL ORTIZ Security Records Management Coordinator Events 1 event(s) in the past 18 months Most recent security events: Elopement at [facility] 11/13/2022 22:19 - Patient eloped before treatment completed. - Patient with suicidal and/or homicidal ideations eloped. - Patient eloped with IV in place. Details: Patient LWBS CRITERIA MET - [facility] - 2 Visits in 30 Days CARE PROVIDERS There are no care providers on record at this time. Tamera has no Care Guidelines for this patient. E.Loli. VISIT COUNT (12 MO.) 6 [facility] H. TOTAL 6 NOTE: Visits indicate total known visits. ED/UCC VISIT TRACKING (12 MO.) 12/16/2022 10:55 [facility] [place] TYPE: Emergency COMPLAINT: - DIZZINESS 11/20/2022 02:54 [facility] [place] TYPE: Emergency COMPLAINT: - L FOOT PAIN DIAGNOSES: - Allergy status to other drugs, medicaments and biological substances - Cellulitis of left lower limb - Essential (primary) hypertension - Localized edema - custodial (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 of insulin - custodial (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 of oral hypoglycemic drugs - Other intermediate manager (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 therapy - Pain in left leg - Type 2 diabetes mellitus without complications 11/13/2022 22:19 [facility] [place] TYPE: Emergency [...] bug exterminator (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 of insulin - bed bug exterminator (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 of oral hypoglycemic drugs - Other intermediate manager (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 therapy - Pain in left leg - Pure hypercholesterolemia, unspecified - Tachycardia, unspecified - Type 2 diabetes mellitus with hyperglycemia 02/27/2022 23:54 [facility] [place] TYPE: Emergency COMPLAINT: - LEFT ANKLE PAIN DIAGNOSES: - Essential (primary) hypertension - custodial (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 of insulin - Other halfway (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 therapy - Pain in left ankle and joints of left foot - Pure hypercholesterolemia, unspecified - Type 2 diabetes mellitus without complications 02/03/2022 12:27 [facility] [place] TYPE: Emergency COMPLAINT: - R SHOULDER PAIN DIAGNOSES: - Essential (primary) hypertension - bed bug exterminator (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 of insulin - Other enthesopathies, not elsewhere classified - Other halfway (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 therapy - Pain in right shoulder - Pure hypercholesterolemia, unspecified - Type 2 diabetes mellitus without complications INPATIENT VISIT TRACKING (12 MO.) No inpatient visits to display in this time frame [id number]
[2022-12-16] MEDS ORDERED: CLINDAMYCIN HC300 MG PO (11:04)
[2022-12-16 11:45] LABS: BASOPHILS 2.5 % (0-2); EOSINOPHILS 2.6 % (0-6); HEMATOCRIT 38.9 % (35.0-50.0); HEMOGLOBIN 14.8 g/dL (12.0-18.0); LYMPHOCYTES 31.5 % (24-44); MCH 32.3 (27-36); MCHC 38.1 g/dl (30-36); MCV 84.7 fl (81-99); MONOCYTES 3.9 % (0-12); NEUTROPHILS 59.5 % (39-80); PLATELET COUNT 270 K/uL (140-440); RDW 14.9 (10.5-15.0)
[2022-12-16 12:44] LABS: ALBUMIN 3.1 g/dL (3.4-5.0); ALBUMIN/GLOBULIN RATIO 0.79 (1.1-2.4); ANION GAP 14.7 (7-21); BILIRUBIN, TOTAL 0.4 ng/dL (0.2-1.0); BUN/CREATININE RATIO 18.18 (6.0-28.6); CALCIUM 8.5 mg/dL (8.5-10.1); CREATININE, SERUM 1.21 mg/dL (0.70-1.30); POTASSIUM 4.7 mmol/L (3.5-5.1)
[2022-12-16 18:20] VITALS: BP 127/82
--- NOTE | 2022-12-16 20:42 | EKG ---
[facility] [address] [place] [address] Signed Normal sinus rhythm Normal ECG No previous ECGs available Confirmed by Yudith Meyer MD () on 12/16/2022 8:42:28 PM Electronically Signed By: YUDITH MEYER MD 12/16/222041 PATIENT NAME: ONIEL ORTIZ Electrocardiogram DATE OF : 72 PHYSICIAN: YUDITH MEYER MD REPORT #: [id number] REPORT IS CONFIDENTIAL AND NOT TO BE RELEASED WITHOUT AUTHORIZATION
== END 2022-12-16 18:14 | disposition home or self-care (01) ==
LOC: ED 10:54
PROVIDERS: Emergency Medicine
DX: E11.65 Type 2 diabetes mellitus with hyperglycemia (principal); E86.0 Dehydration; I10 Essential (primary) hypertension; E78.00 Pure hypercholesterolemia, unspecified; Z88.7 Allergy status to serum and vaccine; Z79.4 Long term (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 of insulin; Z79.84 Long term (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 of oral hypoglycemic drugs; Z79.899 Other long term (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 therapy
CPT/HCPCS: 36415; 80053; 85025; 93005; 93010; 96360; 96361; 99285-25; J7030

== ENCOUNTER 2023-02-04 23:28 | Emergency (ER) | payer OTHER, BC ==
[~2023-02-04] VITALS: Ht 172.7 cm; Wt 110.7 kg
[~2023-02-04 23:28] MED LIST changes: +CLINDAMYCIN HC300 MG PO
[2023-02-05] MEDS ORDERED: COLCHICINE0.6 M1 PO (01:53)
[2023-02-05] MEDS ORDERED: KETOROLAC TROME10 MG PO (01:53)
[2023-02-05 02:09] VITALS: BP 155/100
== END 2023-02-05 02:09 | disposition home or self-care (01) ==
LOC: ED 23:28
DX: M10.9 Gout, unspecified (principal); E11.9 Type 2 diabetes mellitus without complications; I10 Essential (primary) hypertension; Z79.4 Long term (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 of insulin; Z79.899 Other long term (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 therapy; Z79.84 Long term (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 of oral hypoglycemic drugs
CPT/HCPCS: 36415; 73560; 84550; 96372; 99283-25; A9270; J1885

== ENCOUNTER 2023-03-23 13:42 | Emergency (ER) | payer BC, OTHER ==
[~2023-03-23 13:42] MED LIST changes: +COLCHICINE0.6 M1 PO; +KETOROLAC TROME10 MG PO
--- OUTSIDE RECORDS SUMMARY | 2023-03-23 13:47 | XMS ---
PreManage Notification: ONIEL ORTIZ Security Aviation Electrician Events 1 event(s) in the past 18 months Most recent security events: Elopement at [facility] 11/13/2022 22:19 - Patient eloped with IV in place. - Patient eloped before treatment completed. - Patient with suicidal and/or homicidal ideations eloped. Details: Patient LWBS CRITERIA MET - 6 ED Visits in 6 Months CARE PROVIDERS There are no care providers on record at this time. Tamera has no Care Guidelines for this patient. E.Loli. VISIT COUNT (12 MO.) 6 [facility]. TOTAL 6 NOTE: Visits indicate total known visits. ED/C VISIT TRACKING (12 MO.) 03/23/2023 13:43 [facility] [place] TYPE: Emergency COMPLAINT: - L SHOULDER PAIN 02/04/2023 23:29 [facility] [place] TYPE: Emergency COMPLAINT: - LT KNEE PAIN DIAGNOSES: - Essential (primary) hypertension - Gout, unspecified - intermediate school teacher (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 of insulin - intermediate school teacher (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 of oral hypoglycemic drugs - Other rodent exterminator (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 therapy - Pain in left knee - Type 2 diabetes mellitus without complications 12/16/2022 10:55 [facility] [place] TYPE: Emergency COMPLAINT: - DIZZINESS DIAGNOSES: - Allergy status to serum and vaccine - Dehydration - Dizziness and giddiness - Essential (primary) hypertension - care home (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 of insulin - care home (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 of oral hypoglycemic drugs - Other detention (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 therapy - Pure hypercholesterolemia, unspecified - Type 2 diabetes mellitus with hyperglycemia 11/20/2022 02:54 [facility] [place] TYPE: Emergency COMPLAINT: - L FOOT PAIN DIAGNOSES: - Allergy status to other drugs, medicaments and biological substances - Cellulitis of left lower limb - Essential (primary) hypertension - Localized edema - care home (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 of insulin - care home (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 of oral hypoglycemic drugs - Long-term (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 of injectable non-insulin antidiabetic drugs - Other rodent exterminator (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 therapy - Pain in left [...] esophagitis - Hypo-osmolality and hyponatremia - intermediate school teacher (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 of insulin - care home (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 of oral hypoglycemic drugs - Other rodent exterminator (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 therapy - Pain in left leg - Pure hypercholesterolemia, unspecified - Tachycardia, unspecified - Type 2 diabetes mellitus with hyperglycemia INPATIENT VISIT TRACKING (12 MO.) No inpatient visits to display in this time frame [id number]
[2023-03-23] MEDS ORDERED: NAPROSYN500 MG PO (14:16)
[2023-03-23 14:40] VITALS: BP 155/97
== END 2023-03-23 14:40 | disposition home or self-care (01) ==
LOC: ED 13:42
DX: M77.8 Other enthesopathies, not elsewhere classified (principal); I10 Essential (primary) hypertension; E11.9 Type 2 diabetes mellitus without complications; E78.00 Pure hypercholesterolemia, unspecified; Z79.4 Long term (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 of insulin; Z79.84 Long term (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 of oral hypoglycemic drugs; Z79.899 Other long term (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 therapy; Z88.7 Allergy status to serum and vaccine
CPT/HCPCS: 73030; 99283-25

== ENCOUNTER 2023-09-18 09:23 | Emergency (ER) | payer OTHER ==
[~2023-09-18] VITALS: Ht 172.7 cm; Wt 104.7 kg
[~2023-09-18 09:23] MED LIST changes: +DICLOFENAC SODI75 MG PO; +GABAPENTIN300 MG PO; +INSULIN LI100 UNIT/1 SQ
--- OUTSIDE RECORDS SUMMARY | 2023-09-18 09:24 | XMS ---
PreManage Notification: ONIEL ORTIZ Security Ad Operations Associate Events 1 event(s) in the past 18 months Most recent security events: Elopement at [facility] 11/13/2022 22:19 - Patient eloped with IV in place. - Patient eloped before treatment completed. - Patient with suicidal and/or homicidal ideations eloped. Details: Patient LWBS CRITERIA MET - [facility] - 2 Visits in 30 Days CARE PROVIDERS -, [facility] Dentist: Title Insurance Examiner [facility] PHONE: [phone] -, [place]- Dentist: Title Insurance Examiner [facility] PHONE: [phone] YANIV AGUILAR Physician Machine Operator Transplanter Current PHONE: Unknown Tamera has no Care Guidelines for this patient. Ladarius VISIT COUNT (12 MO.) 8 [facility] TOTAL 8 NOTE: Visits indicate total known visits. ED/UCC VISIT TRACKING (12 MO.) 09/18/2023 09:23 [facility] [place] TYPE: Emergency COMPLAINT: - BACK PAIN 08/21/2023 13:19 [facility] [place] TYPE: Emergency COMPLAINT: - DIZZINESS DIAGNOSES: - Allergy status to other drugs, medicaments and biological substances - Dehydration - Disorder of kidney and ureter, unspecified - Dizziness and giddiness - Essential (primary) hypertension - Hypomagnesemia - [facility] (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 of insulin - [facility] (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 of oral hypoglycemic drugs - Other laborer marine terminal (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 therapy - Type 2 diabetes mellitus without complications 03/23/2023 13:43 [facility] [place] TYPE: Emergency COMPLAINT: - L SHOULDER PAIN DIAGNOSES: - Allergy status to serum and vaccine - Essential (primary) hypertension - terminal carman (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 of insulin - terminal carman (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 of oral hypoglycemic drugs - Other enthesopathies, not elsewhere classified - Other laborer marine terminal (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 therapy - Pain in left shoulder - Pure hypercholesterolemia, unspecified - Type 2 diabetes mellitus without complications 02/04/2023 23:29 [facility] [place] TYPE: Emergency COMPLAINT: - LT KNEE PAIN DIAGNOSES: - Essential (primary) hypertension - Gout, unspecified - terminal carman (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 of insulin - terminal carman (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 of oral hypoglycemic drugs - Other laborer marine terminal (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 therapy - Pain in left knee - Type 2 diabetes mellitus without complications 12/16/2022 10:55 [facility] [place] TYPE: Emergency COMPLAINT: - DIZZINESS DIAGNOSES: - Allergy status to serum and vaccine - Dehydration - Dizziness and giddiness - Essential (primary) hypertension - [facility] (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 of insulin - [facility] (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 of oral hypoglycemic drugs - Other laborer marine terminal (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 therapy - Pure hypercholesterolemia, unspecified - Type 2 diabetes mellitus with hyperglycemia 11/20/2022 02:54 [facility] [place] TYPE: Emergency COMPLAINT: - L FOOT PAIN DIAGNOSES: - Allergy status to other drugs, medicaments and biological substances - Cellulitis of left lower limb - Essential (primary) hypertension - Localized edema - terminal carman (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 of insulin - terminal carman (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 of oral hypoglycemic drugs - Long-term (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 of injectable non-insulin antidiabetic drugs - Other laborer marine terminal (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 therapy - Pain in left leg - Type 2 diabetes mellitus without complications 11/13/2022 22:19 [facility] [place] TYPE: Emergency COMPLAINT: - WEAKNESS DIAGNOSES: - Dizziness and giddiness - Procedure and treatment not carried out due to patient leaving prior to being seen by health care provider 10/31/2022 21:[address] [facility] [place] TYPE: Emergency COMPLAINT: - L LEG PAIN DIAGNOSES: - Allergy status to other drugs, medicaments and biological substances - Cellulitis of left lower limb - Essential (primary) hypertension - Gastro-esophageal reflux disease without esophagitis - Hypo-osmolality and hyponatremia - terminal carman (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 of insulin - [facility] (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 of oral hypoglycemic drugs - Other detention (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 therapy - Pain in left leg - Pure hypercholesterolemia, unspecified - Tachycardia, unspecified - Type 2 diabetes mellitus with hyperglycemia INPATIENT VISIT TRACKING (12 MO.) No inpatient visits to display in this time frame [id number]
[2023-09-18] MEDS ORDERED: diazePAM 10 MG/2 ML SYR IM ONE (10:00)
[2023-09-18] MEDS ORDERED: KETOROLAC TROMETHAMINE 60 MG/2 ML VIAL IM ONE (10:00)
[2023-09-18] MEDS ORDERED: TRAMADOL HCL50 MG PO (10:47)
[2023-09-18] MEDS ORDERED: METHYLPREDNISOLO4 M1 PO (10:47)
[2023-09-18 12:15] VITALS: BP 153/101
== END 2023-09-18 12:10 | disposition home or self-care (01) ==
LOC: ED 09:23
DX: S29.012A Strain of muscle and tendon of back wall of thorax, initial encounter (principal); E11.9 Type 2 diabetes mellitus without complications; I10 Essential (primary) hypertension; X58.XXXA Exposure to other specified factors, initial encounter; Z88.7 Allergy status to serum and vaccine; Z79.4 Long term (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 of insulin; Z79.84 Long term (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 of oral hypoglycemic drugs; Z79.899 Other long term (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 therapy
CPT/HCPCS: 72070; 96372; 99283-25; J1885; J3360

== ENCOUNTER 2023-10-10 18:36 | Emergency (ER) | payer OTHER ==
[~2023-10-10] VITALS: Ht 172.7 cm; Wt 108.0 kg
[~2023-10-10 18:36] MED LIST changes: +METHYLPREDNISOLO4 M1 PO; +TRAMADOL HCL50 MG PO
--- OUTSIDE RECORDS SUMMARY | 2023-10-10 18:37 | XMS ---
PreManage Notification: ONIEL ORTIZ Security Telegraph Service Clerk Events 1 event(s) in the past 18 months Most recent security events: Elopement at [facility] 11/13/2022 22:19 - Patient eloped with IV in place. - Patient eloped before treatment completed. - Patient with suicidal and/or homicidal ideations eloped. Details: Patient LWBS CRITERIA MET - [facility] - 2 Visits in 30 Days CARE PROVIDERS -, [facility] Dentist: Cement Sprayer Helper [facility] PHONE: [phone] -, [place]- Dentist: Cement Sprayer Helper [facility] PHONE: [phone] YANIV AGUILAR Physician Desktop Specialist Current PHONE: Unknown Tamera has no Care Guidelines for this patient. Ladarius VISIT COUNT (12 MO.) 9 [facility] TOTAL 9 NOTE: Visits indicate total known visits. ED/UCC VISIT TRACKING (12 MO.) 10/10/2023 18:36 [facility] [place] TYPE: Emergency COMPLAINT: - DIZZINESS 09/18/2023 09:23 [facility] [place] TYPE: Emergency COMPLAINT: - BACK PAIN DIAGNOSES: - Allergy status to serum and vaccine - Essential (primary) hypertension - Exposure to other specified factors, initial encounter - intermediate accountant (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 of insulin - intermediate accountant (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 of oral hypoglycemic drugs - Other residential (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 therapy - Pain in thoracic spine - Strain of muscle and tendon of back wall of thorax, initial encounter - Type 2 diabetes mellitus without complications 08/21/2023 13:19 [facility] [place] TYPE: Emergency COMPLAINT: - DIZZINESS DIAGNOSES: - Allergy status to other drugs, medicaments and biological substances - Dehydration - Disorder of kidney and ureter, unspecified - Dizziness and giddiness - Essential (primary) hypertension - Hypomagnesemia - intermediate accountant (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 of insulin - prison (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 of oral hypoglycemic drugs - Other extermination inspector (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 therapy - Type 2 diabetes mellitus without complications 03/23/2023 13:43 [facility] [place] TYPE: Emergency COMPLAINT: - L SHOULDER PAIN DIAGNOSES: - Allergy status to serum and vaccine - Essential (primary) hypertension - prison (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 of insulin - prison (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 of oral hypoglycemic drugs - Other enthesopathies, not elsewhere classified - Other residential (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 therapy - Pain in left shoulder - Pure hypercholesterolemia, unspecified - Type 2 diabetes mellitus without complications 02/04/2023 23:29 [facility] [place] TYPE: Emergency COMPLAINT: - LT KNEE PAIN DIAGNOSES: - Essential (primary) hypertension - Gout, unspecified - intermediate accountant (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 of insulin - prison (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 of oral hypoglycemic drugs - Other residential (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 therapy - Pain in left knee - Type 2 diabetes mellitus without complications 12/16/2022 10:55 [facility] [place] TYPE: Emergency COMPLAINT: - DIZZINESS DIAGNOSES: - Allergy status to serum and vaccine - Dehydration - Dizziness and giddiness - Essential (primary) hypertension - prison (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 of insulin - prison (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 of oral hypoglycemic drugs - Other extermination inspector (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 therapy - Pure hypercholesterolemia, unspecified - Type 2 diabetes mellitus with hyperglycemia 11/20/2022 02:54 [facility] [place] TYPE: Emergency COMPLAINT: - L FOOT PAIN DIAGNOSES: - Allergy status to other drugs, medicaments and biological substances - Cellulitis of left lower limb - Essential (primary) hypertension - Localized edema - intermediate accountant (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 of insulin - intermediate accountant (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 of oral hypoglycemic drugs - Long-term (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 of injectable non-insulin antidiabetic drugs - Other residential (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 therapy - Pain in left [...] esophagitis - Hypo-osmolality and hyponatremia - intermediate accountant (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 of insulin - prison (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 of oral hypoglycemic drugs - Other residential (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 therapy - Pain in left leg - Pure hypercholesterolemia, unspecified - Tachycardia, unspecified - Type 2 diabetes mellitus with hyperglycemia INPATIENT VISIT TRACKING (12 MO.) No inpatient visits to display in this time frame [id number]
[2023-10-10] MEDS ORDERED: BACLOFEN10 MG PO (18:51)
[2023-10-10] MEDS ORDERED: ATORVASTATIN CA80 MG PO (18:51)
[2023-10-10] MEDS ORDERED: TRULICITY0.75 MG/0. SUB-Q (18:51)
[2023-10-10] MEDS ORDERED: MAGNESIUM400 MG PO (18:52)
[2023-10-10] MEDS ORDERED: MULTI VITAMIN1 EACH PO (18:52)
[2023-10-10] MEDS ORDERED: KETOROLAC TROMETHAMINE 60 MG/2 ML VIAL IM ONE (19:45)
[2023-10-10] MEDS ORDERED: PSEUDOEPHEDRINE HCL 30 MG TAB PO ONE (19:45)
[2023-10-10] MEDS ORDERED: CYCLOBENZAPRINE HCL 10 MG TAB PO ONE (19:45)
[2023-10-10] MEDS ORDERED: BENZONATATE 100 MG CAP PO ONE (19:45)
[2023-10-10 19:53] LABS: INFLUENZA B NAA NEGATIVE (NEGATIVE); RESPIRATORY SYNCYTIAL VIR NAA NEGATIVE (NEGATIVE)
[2023-10-10 20:44] LABS: BASOPHILS 0.6 % (0-2); EOSINOPHILS 2.1 % (0-6); HEMATOCRIT 34.4 % (35.0-50.0); HEMOGLOBIN 11.9 g/dL (12.0-18.0); LYMPHOCYTES 24.7 % (24-44); MCH 29.1 (27-36); MCHC 34.5 g/dl (30-36); MCV 84.2 fl (81-99); MONOCYTES 5.6 % (0-12); PLATELET COUNT 217 K/uL (140-440); RBC 4.09 M/ul (4.3-5.7); RDW 14.7 (10.5-15.0)
[2023-10-10 21:00] LABS: ALBUMIN 3.4 g/dL (3.4-5.0); ALBUMIN/GLOBULIN RATIO 1.03 (1.1-2.4); ANION GAP 15.9 (7-21); BILIRUBIN, TOTAL 0.4 ng/dL (0.2-1.0); BUN/CREATININE RATIO 17.71 (6.0-28.6); CALCIUM 8.7 mg/dL (8.5-10.1); CREATININE, SERUM 1.75 mg/dL (0.70-1.30); POTASSIUM 3.9 mmol/L (3.5-5.1); PROTEIN, TOTAL 6.7 g/dL (6.4-8.2)
[2023-10-10 21:19] LABS: MAGNESIUM 0.7 mg/dL (1.8-2.4)
[2023-10-10] MEDS ORDERED: SODIUM CHLORIDE 0.9% 1,000 ML IV ONE (21:30)
[2023-10-10] MEDS ORDERED: MAGNESIUM SULFATE 2 GM/50 ML BAG IV ONE (21:30)
[2023-10-10] MEDS ORDERED: MAGNESIUM OXID400 M1 PO (22:59)
[2023-10-10 23:07] VITALS: BP 136/78
--- NOTE | 2023-10-11 12:13 | EKG ---
[facility] [address] [place] [address] Signed Normal sinus rhythm Normal ECG When compared with ECG of 21-AUG-2023 13:33, No significant change was found Confirmed by Yudith Meyer MD () on 10/11/2023 12:13:41 PM Electronically Signed By: YUDITH MEYER MD 10/11/23 1213 PATIENT NAME: ONIEL ORTIZ ALEX Electrocardiogram DATE OF : 72 PHYSICIAN: YUDITH MEYER MD REPORT #: [id number] REPORT IS CONFIDENTIAL AND NOT TO BE RELEASED WITHOUT AUTHORIZATION
== END 2023-10-10 23:09 | disposition home or self-care (01) ==
LOC: ED 18:36
PROVIDERS: Family Medicine
DX: E83.42 Hypomagnesemia (principal); I10 Essential (primary) hypertension; E11.9 Type 2 diabetes mellitus without complications; Z88.8 Allergy status to other drugs, medicaments and biological substances; Z79.4 Long term (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 of insulin; Z79.84 Long term (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 of oral hypoglycemic drugs; Z79.899 Other long term (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 therapy
CPT/HCPCS: 36415; 71045; 80053; 83735; 85025; 87502; 93005; 93010; A9270; J1885; J3475; J7030; U0002

== ENCOUNTER 2023-10-15 22:43 | Emergency (ER) | payer OTHER ==
[~2023-10-15] VITALS: Ht 172.7 cm; Wt 105.4 kg
[~2023-10-15 22:43] MED LIST changes: +ATORVASTATIN CA80 MG PO; +BACLOFEN10 MG PO; +MAGNESIUM OXID400 M1 PO; +MAGNESIUM400 MG PO; +MULTI VITAMIN1 EACH PO; +TRULICITY0.75 MG/0. SUB-Q
--- OUTSIDE RECORDS SUMMARY | 2023-10-15 23:08 | XMS ---
PreManage Notification: ONIEL ORTIZ Security Operations Supervisor 2Nd Shift Events 1 event(s) in the past 18 months Most recent security events: Elopement at [facility] 11/13/2022 22:19 - Patient eloped with IV in place. - Patient eloped before treatment completed. - Patient with suicidal and/or homicidal ideations eloped. Details: Patient LWBS CRITERIA MET - [facility] - 2 Visits in 30 Days CARE PROVIDERS -, [facility] Dentist: Applications Coordinator [facility] PHONE: [phone] -, [place]- Dentist: Applications Coordinator [facility] PHONE: [phone] YANIV AGUILAR Physician Institute Scientist Current PHONE: Unknown Tamera has no Care Guidelines for this patient. [place] VISIT COUNT (12 MO.) 10 [facility] Lewis TOTAL 10 NOTE: Visits indicate total known visits. ED/UCC VISIT TRACKING (12 MO.) 10/15/2023 22:43 [facility] [place] TYPE: Emergency COMPLAINT: - WEAKNESS 10/10/2023 18:36 [facility] [place] TYPE: Emergency COMPLAINT: - DIZZINESS DIAGNOSES: - Allergy status to other drugs, medicaments and biological substances - Dizziness and giddiness - Essential (primary) hypertension - Hypomagnesemia - shelter (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 of insulin - shelter (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 of oral hypoglycemic drugs - Other care home (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 therapy - Type 2 diabetes mellitus without complications 09/18/2023 09:23 [facility] [place] TYPE: Emergency COMPLAINT: - BACK PAIN DIAGNOSES: - Allergy status to serum and vaccine - Essential (primary) hypertension - Exposure to other specified factors, initial encounter - extermination supervisor (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 of insulin - shelter (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 of oral hypoglycemic drugs - Other intermodal customer service (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 therapy - Pain in thoracic [...] - Essential (primary) hypertension - Hypomagnesemia - extermination supervisor (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 of insulin - shelter (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 of oral hypoglycemic drugs - Other intermodal customer service (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 therapy - Type 2 diabetes mellitus without complications 03/23/2023 13:43 [facility] [place] TYPE: Emergency COMPLAINT: - L SHOULDER PAIN DIAGNOSES: - Allergy status to serum and vaccine - Essential (primary) hypertension - shelter (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 of insulin - shelter (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 of oral hypoglycemic drugs - Other enthesopathies, not elsewhere classified - Other care home (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 therapy - Pain in left shoulder - Pure hypercholesterolemia, unspecified - Type 2 diabetes mellitus without complications 02/04/2023 23:29 [facility] [place] TYPE: Emergency COMPLAINT: - LT KNEE PAIN DIAGNOSES: - Essential (primary) hypertension - Gout, unspecified - shelter (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 of insulin - extermination supervisor (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 of oral hypoglycemic drugs - Other intermodal customer service (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 therapy - Pain in left knee - Type 2 diabetes mellitus without complications 12/16/2022 10:55 [facility] [place] TYPE: Emergency COMPLAINT: - DIZZINESS DIAGNOSES: - Allergy status to serum and vaccine - Dehydration - Dizziness and giddiness - Essential (primary) hypertension - extermination supervisor (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 of insulin - extermination supervisor (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 of oral hypoglycemic drugs - Other care home (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 therapy - Pure hypercholesterolemia, unspecified - Type 2 diabetes mellitus with hyperglycemia 11/20/2022 02:54 [facility] [place] TYPE: Emergency COMPLAINT: - L FOOT PAIN DIAGNOSES: - Allergy status to other drugs, medicaments and biological substances - Cellulitis of left lower limb - Essential (primary) hypertension - Localized edema - extermination supervisor (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 of insulin - shelter (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 of oral hypoglycemic drugs - Long-term (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 of injectable non-insulin antidiabetic drugs - Other care home (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 therapy - Pain in left [...] without esophagitis - Hypo-osmolality and hyponatremia - shelter (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 of insulin - extermination supervisor (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 of oral hypoglycemic drugs - Other intermodal customer service (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 therapy - Pain in left leg - Pure hypercholesterolemia, unspecified - Tachycardia, unspecified - Type 2 diabetes mellitus with hyperglycemia INPATIENT VISIT TRACKING (12 MO.) No inpatient visits to display in this time frame [email or web address]
[2023-10-15] MEDS ORDERED: LACTATED RINGER'S 1,000 ML IV ONE (23:15)
[2023-10-15 23:31] LABS: BILIRUBIN, URINE NEGATIVE (negative); BLOOD/HGB, URINE NEGATIVE (Negative); KETONE, URINE TRACE (Negative); LEUK ESTERASE, URINE NEGATIVE (negative); NITRITE, URINE NEGATIVE (negative); PH, URINE 5.5 (5-7)
[2023-10-15 23:37] LABS: HEMOGLOBIN 11.8 g/dL (12.0-18.0)
[2023-10-15 23:38] LABS: CRYSTALS, URINE NONE SEEN (0-1+); EPITHELIAL CELLS, URINE NS /lpf (0-1+); RED BLOOD CELLS, URINE 0-1 /hpf (0-5)
[2023-10-15 23:39] LABS: BACTERIA, URINE RARE /hpf (negative); CASTS, URINE HYALINE 2+ \\lpf; COLLECTION TYPE, URINE CLEAN CATCH; REFLEX CULTURE, URINE No (No)
[2023-10-15 23:42] LABS: EOSINOPHILS 2.4 % (0-6); HEMATOCRIT 35.1 % (35.0-50.0); LYMPHOCYTES 33.2 % (24-44); MCH 28.6 (27-36); MCHC 33.6 g/dl (30-36); MCV 85.3 fl (81-99); MONOCYTES 7.2 % (0-12); NEUTROPHILS 56.2 % (39-80); PLATELET COUNT 257 K/uL (140-440); RBC 4.11 M/ul (4.3-5.7); RDW 15.1 (10.5-15.0)
[2023-10-15 23:44] LABS: AMPHETAMINES, URINE NEGATIVE (NEGATIVE); BARBITURATES, URINE NEGATIVE (NEGATIVE); BENZODIAZEPINE, URINE NEGATIVE (NEGATIVE); BUPRENORPHINE, URINE NEGATIVE (NEGATIVE); CANNABINOID, URINE NEGATIVE (NEGATIVE); COCAINE, URINE NEGATIVE (NEGATIVE); ECSTASY, URINE NEGATIVE (NEGATIVE); FENTANYL, URINE NEGATIVE (NEGATIVE); METHADONE, URINE NEGATIVE (NEGATIVE); OPIATES, URINE NEGATIVE (NEGATIVE); OXYCODONE, URINE NEGATIVE (NEGATIVE); PHENCYCLIDINE, URINE NEGATIVE (NEGATIVE)
[2023-10-15 23:57] LABS: ALBUMIN 3.4 g/dL (3.4-5.0); ALBUMIN/GLOBULIN RATIO 1.06 (1.1-2.4); ANION GAP 16.2 (7-21); BILIRUBIN, TOTAL 0.3 ng/dL (0.2-1.0); BUN/CREATININE RATIO 21.05 (6.0-28.6); CALCIUM 9.2 mg/dL (8.5-10.1); CREATININE, SERUM 1.71 mg/dL (0.70-1.30); MAGNESIUM 1.3 mg/dL (1.8-2.4); POTASSIUM 4.2 mmol/L (3.5-5.1); PROTEIN, TOTAL 6.6 g/dL (6.4-8.2)
[2023-10-16] MEDS ORDERED: MAGNESIUM SULFATE 50 ML IV ONE (00:12)
[2023-10-16] MEDS ORDERED: MAGNESIUM SULFATE 2 GM/50 ML BAG IV ONE (00:15)
[2023-10-16] MEDS ORDERED: MAGNESIUM OXID400 M1 PO (02:41)
[2023-10-16 02:43] VITALS: BP 133/88
--- NOTE | 2023-10-16 11:42 | EKG ---
[facility] [address] [place] [address] Signed Normal sinus rhythm Normal ECG When compared with ECG of 10-OCT-2023 18:46, No significant change was found Confirmed by Haleigh Mack ([id number]) on 10/16/2023 11:41:58 AM Electronically Signed By: HALEIGH MACK MD 10/16/23 1142 PATIENT NAME: ONIEL ORTIZ ALEX Electrocardiogram DATE OF : 72 PHYSICIAN: HALEIGH MACK MD REPORT #: [id number] REPORT IS CONFIDENTIAL AND NOT TO BE RELEASED WITHOUT AUTHORIZATION
== END 2023-10-16 02:53 | disposition home or self-care (01) ==
LOC: ED 22:43
PROVIDERS: Internal Medicine
DX: E83.42 Hypomagnesemia (principal); E11.9 Type 2 diabetes mellitus without complications; I10 Essential (primary) hypertension; Z88.7 Allergy status to serum and vaccine; Z79.899 Other long term (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 therapy; Z79.4 Long term (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 of insulin; Z79.84 Long term (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 of oral hypoglycemic drugs
CPT/HCPCS: 36415; 71045; 80053; 80307; 81001; 83735; 83880; 84484; 85025; 93005; 93010; 96361; 96365; 99284-25; G0480; J3475; J7121

== ENCOUNTER 2023-11-01 23:11 | Emergency (ER) | payer OTHER ==
[~2023-11-01] VITALS: Ht 172.7 cm; Wt 106.9 kg
--- OUTSIDE RECORDS SUMMARY | 2023-11-01 23:18 | XMS ---
PreManage Notification: ONIEL ORTIZ Security Solvent Process Extractor Operator Events 1 event(s) in the past 18 months Most recent security events: Elopement at [facility] 11/13/2022 22:19 - Patient eloped with IV in place. - Patient eloped before treatment completed. - Patient with suicidal and/or homicidal ideations eloped. Details: Patient LWBS CRITERIA MET - [facility] - 2 Visits in 30 Days CARE PROVIDERS -, [facility] Dentist: Outside Installation Machinist [facility] [place] PHONE: [phone] -, Millie- Dentist: Outside Installation Machinist [facility] PHONE: [phone] YANIV AGUILAR Physician Agriculture Intern Current PHONE: Unknown Tamera has no Care Guidelines for this patient. [place] VISIT COUNT (12 MO.) 10 TASHIA Lewis TOTAL 10 NOTE: Visits indicate total known visits. ED/UCC VISIT TRACKING (12 MO.) 11/01/2023 23:12 [facility] [place] TYPE: Emergency COMPLAINT: - BACK PAIN 10/15/2023 22:43 [facility] [place] TYPE: Emergency COMPLAINT: - WEAKNESS DIAGNOSES: - Allergy status to serum and vaccine - Dizziness and giddiness - Essential (primary) hypertension - Hypomagnesemia - wheel of fortune dealer (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 of insulin - wheel of fortune dealer (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 of oral hypoglycemic drugs - Other group home (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 therapy - Type 2 diabetes mellitus without complications 10/10/2023 18:36 [facility] [place] TYPE: Emergency COMPLAINT: - DIZZINESS DIAGNOSES: - Allergy status to other drugs, medicaments and biological substances - Dizziness and giddiness - Essential (primary) hypertension - Hypomagnesemia - wheel of fortune dealer (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 of insulin - halfway (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 of oral hypoglycemic drugs - Other immigration specialist (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 therapy - Type 2 diabetes mellitus without complications 09/18/2023 09:23 [facility] [place] TYPE: Emergency COMPLAINT: - BACK PAIN DIAGNOSES: - Allergy status to serum and vaccine - Essential (primary) hypertension - Exposure to other specified factors, initial encounter - wheel of fortune dealer (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 of insulin - halfway (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 of oral hypoglycemic drugs - Other immigration specialist (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 therapy - Pain in thoracic [...] - Essential (primary) hypertension - Hypomagnesemia - halfway (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 of insulin - wheel of fortune dealer (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 of oral hypoglycemic drugs - Other group home (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 therapy - Type 2 diabetes mellitus without complications 03/23/2023 13:43 TASHIA Thomason [place] TYPE: Emergency COMPLAINT: - L SHOULDER PAIN DIAGNOSES: - Allergy status to serum and vaccine - Essential (primary) hypertension - wheel of fortune dealer (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 of insulin - halfway (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 of oral hypoglycemic drugs - Other enthesopathies, not elsewhere classified - Other group home (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 therapy - Pain in left shoulder - Pure hypercholesterolemia, unspecified - Type 2 diabetes mellitus without complications 02/04/2023 23:29 [facility] Thom[facility] [place] TYPE: Emergency COMPLAINT: - LT KNEE PAIN DIAGNOSES: - Essential (primary) hypertension - Gout, unspecified - halfway (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 of insulin - wheel of fortune dealer (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 of oral hypoglycemic drugs - Other group home (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 therapy - Pain in left knee - Type 2 diabetes mellitus without complications 12/16/2022 10:55 T[facility]IA Thomason [place] TYPE: Emergency COMPLAINT: - DIZZINESS DIAGNOSES: - Allergy status to serum and vaccine - Dehydration - Dizziness and giddiness - Essential (primary) hypertension - halfway (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 of insulin - halfway (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 of oral hypoglycemic drugs - Other group home (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 therapy - Pure hypercholesterolemia, unspecified - Type 2 diabetes mellitus with hyperglycemia 11/20/2022 02:54 T[facility] Thomason [place] TYPE: Emergency COMPLAINT: - L FOOT PAIN DIAGNOSES: - Allergy status to other drugs, medicaments and biological substances - Cellulitis of left lower limb - Essential (primary) hypertension - Localized edema - halfway (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 of insulin - halfway (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 of oral hypoglycemic drugs - Long-term (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 of injectable non-insulin antidiabetic drugs - Other group home (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 therapy - Pain in left leg - Type 2 diabetes mellitus without complications 11/13/2022 22:19 [facility] [place] TYPE: Emergency COMPLAINT: - WEAKNESS DIAGNOSES: - Dizziness and giddiness - Procedure and treatment not carried out due to patient leaving prior to being seen by health care provider INPATIENT VISIT TRACKING (12 MO.) No inpatient visits to display in this time frame [id number]
[2023-11-01] MEDS ORDERED: LIDOCAINE HCL 4% 1 EACH PATCH TD ONE (23:45)
[2023-11-01] MEDS ORDERED: PREGABALIN 75 MG CAP PO ONE (23:45)
[2023-11-02] MEDS ORDERED: TRAMADOL HCL 50 MG TAB PO ONE (01:15)
[2023-11-02] MEDS ORDERED: LIDODERM1 EACH TOP (01:35)
[2023-11-02 01:44] VITALS: BP 109/74
== END 2023-11-02 01:47 | disposition home or self-care (01) ==
LOC: ED 23:11
DX: S29.012A Strain of muscle and tendon of back wall of thorax, initial encounter (principal); X58.XXXA Exposure to other specified factors, initial encounter; I10 Essential (primary) hypertension; E11.9 Type 2 diabetes mellitus without complications; E78.00 Pure hypercholesterolemia, unspecified; Z88.7 Allergy status to serum and vaccine; Z79.4 Long term (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 of insulin; Z79.85 Long-term (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 of injectable non-insulin antidiabetic drugs; Z79.84 Long term (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 of oral hypoglycemic drugs; Z79.899 Other long term (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 therapy
CPT/HCPCS: 99283; A9270

== ENCOUNTER 2023-11-09 00:19 | Emergency (ER) | payer OTHER ==
[~2023-11-09] VITALS: Ht 172.7 cm; Wt 98.0 kg
--- OUTSIDE RECORDS SUMMARY | 2023-11-09 00:26 | XMS ---
PreManage Notification: ONIEL ORTIZ Security Program Manager Environmental Planning Events 1 event(s) in the past 18 months Most recent security events: Elopement at [facility] 11/13/2022 22:19 - Patient eloped with IV in place. - Patient eloped before treatment completed. - Patient with suicidal and/or homicidal ideations eloped. Details: Patient LWBS CRITERIA MET - 6 ED Visits in 6 Months - [facility] - 2 Visits in 30 Days CARE PROVIDERS -[facility] Dentist: Transporter Radiology [facility] PHONE: [phone] -Millie- Dentist: Transporter Radiology [facility] PHONE: [phone] YANIV AGUILAR Physician Audio Video Repairer Current PHONE: Unknown Tamera has no Care Guidelines for this patient. Ladarius VISIT COUNT (12 MO.) 11 TASHIA Lewis TOTAL 11 NOTE: Visits indicate total known visits. ED/UCC VISIT TRACKING (12 MO.) 11/09/2023 00:20 T[facility] Thom[facility] [place] TYPE: Emergency COMPLAINT: - DIZZINESS 11/01/2023 23:12 TASHIA Thomason [place] TYPE: Emergency COMPLAINT: - BACK PAIN DIAGNOSES: - Allergy status to serum and vaccine - Dorsalgia, unspecified - Essential (primary) hypertension - Exposure to other specified factors, initial encounter - longterm (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 of insulin - ferry terminal agent (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 of oral hypoglycemic drugs - Long-term (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 of injectable non-insulin antidiabetic drugs - Other supervisor intermediates (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 therapy - Pure hypercholesterolemia, unspecified - Strain of muscle and tendon of back wall of thorax, initial encounter - Type 2 diabetes mellitus without complications 10/15/2023 22:43 TASHIA Thomason [place] TYPE: Emergency COMPLAINT: - WEAKNESS DIAGNOSES: - Allergy status to serum and vaccine - Dizziness and giddiness - Essential (primary) hypertension - Hypomagnesemia - longterm (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 of insulin - longterm (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 of oral hypoglycemic drugs - Other fdc (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 therapy - Type 2 diabetes mellitus without complications 10/10/2023 18:36 TASHIA Thomason [place] TYPE: Emergency COMPLAINT: - DIZZINESS DIAGNOSES: - Allergy status to other drugs, medicaments and biological substances - Dizziness and giddiness - Essential (primary) hypertension - Hypomagnesemia - ferry terminal agent (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 of insulin - longterm (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 of oral hypoglycemic drugs - Other supervisor intermediates (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 therapy - Type 2 diabetes mellitus without complications 09/18/2023 09:23 TASH[facility] Thomason [place] TYPE: Emergency COMPLAINT: - BACK PAIN DIAGNOSES: - Allergy status to serum and vaccine - Essential (primary) hypertension - Exposure to other specified factors, initial encounter - longterm (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 of insulin - ferry terminal agent (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 of oral hypoglycemic drugs - Other supervisor intermediates (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 therapy - Pain in thoracic [...] - Essential (primary) hypertension - Hypomagnesemia - ferry terminal agent (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 of insulin - longterm (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 of oral hypoglycemic drugs - Other supervisor intermediates (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 therapy - Type 2 diabetes mellitus without complications 03/23/2023 13:43 TASHIA Thomason [place] TYPE: Emergency COMPLAINT: - L SHOULDER PAIN DIAGNOSES: - Allergy status to serum and vaccine - Essential (primary) hypertension - ferry terminal agent (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 of insulin - longterm (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 of oral hypoglycemic drugs - Other enthesopathies, not elsewhere classified - Other fdc (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 therapy - Pain in left shoulder - Pure hypercholesterolemia, unspecified - Type 2 diabetes mellitus without complications 02/04/2023 23:29 TASHIA Thomason [place] TYPE: Emergency COMPLAINT: - LT KNEE PAIN DIAGNOSES: - Essential (primary) hypertension - Gout, unspecified - ferry terminal agent (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 of insulin - longterm (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 of oral hypoglycemic drugs - Other fdc (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 therapy - Pain in left knee - Type 2 diabetes mellitus without complications 12/16/2022 10:55 TASHIA Thomason [place] TYPE: Emergency COMPLAINT: - DIZZINESS DIAGNOSES: - Allergy status to serum and vaccine - Dehydration - Dizziness and giddiness - Essential (primary) hypertension - ferry terminal agent (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 of insulin - longterm (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 of oral hypoglycemic drugs - Other fdc (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 therapy - Pure hypercholesterolemia, unspecified - Type 2 diabetes mellitus with hyperglycemia 11/20/2022 02:54 T[facility] [place] TYPE: Emergency COMPLAINT: - L FOOT PAIN DIAGNOSES: - Allergy status to other drugs, medicaments and biological substances - Cellulitis of left lower limb - Essential (primary) hypertension - Localized edema - longterm (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 of insulin - longterm (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 of oral hypoglycemic drugs - Long-term (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 of injectable non-insulin antidiabetic drugs - Other supervisor intermediates (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 therapy - Pain in left leg - Type 2 diabetes mellitus without complications 11/13/2022 22:19 T[facility] Thom[facility] [place] TYPE: Emergency COMPLAINT: - WEAKNESS DIAGNOSES: - Dizziness and giddiness - Procedure and treatment not carried out due to patient leaving prior to being seen by health care provider INPATIENT VISIT TRACKING (12 MO.) No inpatient visits to display in this time frame [id number]
[2023-11-09 00:38] LABS: BASOPHILS 0.7 % (0-2); EOSINOPHILS 2.6 % (0-6); LYMPHOCYTES 22.7 % (24-44); MCH 30.1 (27-36); MCHC 35.1 g/dl (30-36); MCV 85.8 fl (81-99); MONOCYTES 5.5 % (0-12); NEUTROPHILS 68.5 % (39-80); PLATELET COUNT 299 K/uL (140-440); RBC 4.31 M/ul (4.3-5.7); RDW 15.3 (10.5-15.0)
[2023-11-09 00:56] LABS: ALBUMIN 3.6 g/dL (3.4-5.0); ALBUMIN/GLOBULIN RATIO 1.03 (1.1-2.4); ANION GAP 18.3 (7-21); BILIRUBIN, TOTAL 0.3 ng/dL (0.2-1.0); BUN/CREATININE RATIO 15.35 (6.0-28.6); CALCIUM 9.2 mg/dL (8.5-10.1); CREATININE, SERUM 2.28 mg/dL (0.70-1.30); POTASSIUM 4.3 mmol/L (3.5-5.1); PROTEIN, TOTAL 7.1 g/dL (6.4-8.2)
[2023-11-09] MEDS ORDERED: LACTATED RINGER'S 1,000 ML IV ONE (01:15)
[2023-11-09] MEDS ORDERED: MAGNESIUM OXIDE 400 MG TABLET PO ONE (01:45)
[2023-11-09 02:41] VITALS: BP 144/99
--- NOTE | 2023-11-09 21:33 | EKG ---
[facility] [address] [place] [address] Signed Sinus tachycardia Otherwise normal ECG When compared with ECG of 15-OCT-2023 23:01, No significant change was found Confirmed by Yudith Meyer MD () on 11/09/2023 9:33:25 PM Electronically Signed By: YUDITH MEYER MD 11/09/232132 PATIENT NAME: ONIEL ORTIZ ALEX Electrocardiogram DATE OF : 72 PHYSICIAN: YUDITH MEYER MD REPORT #: [id number] REPORT IS CONFIDENTIAL AND NOT TO BE RELEASED WITHOUT AUTHORIZATION
== END 2023-11-09 02:43 | disposition home or self-care (01) ==
LOC: ED 00:19
PROVIDERS: Internal Medicine
DX: H81.10 Benign paroxysmal vertigo, unspecified ear (principal); R94.4 Abnormal results of kidney function studies; R00.0 Tachycardia, unspecified; E11.9 Type 2 diabetes mellitus without complications; E78.00 Pure hypercholesterolemia, unspecified; I10 Essential (primary) hypertension; Z88.7 Allergy status to serum and vaccine; Z79.4 Long term (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 of insulin; Z79.85 Long-term (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 of injectable non-insulin antidiabetic drugs; Z79.84 Long term (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 of oral hypoglycemic drugs; Z79.1 Long term (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 of non-steroidal anti-inflammatories (NSAID); Z79.899 Other long term (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 therapy; R42 Dizziness and giddiness
CPT/HCPCS: 36415; 80053; 80307; 83735; 84484; 85025; 93005; 93010; 99284; J7121

== ENCOUNTER 2023-12-23 11:49 | Emergency (ER) | payer OTHER ==
[~2023-12-23] VITALS: Ht 172.7 cm; Wt 99.0 kg
--- OUTSIDE RECORDS SUMMARY | 2023-12-23 11:55 | XMS ---
PreManage Notification: ONIEL ORTIZ Security Caster Operator Events 1 event(s) in the past 18 months Most recent security events: Elopement at [facility] 11/13/2022 22:19 - Patient eloped with IV in place. - Patient eloped before treatment completed. - Patient with suicidal and/or homicidal ideations eloped. Details: Patient LWBS CRITERIA MET - 6 ED Visits in 6 Months CARE PROVIDERS -[facility] Dentist: Houseperson [facility] PHONE: [phone] -Millie- Dentist: Houseperson [facility] PHONE: [phone] YANIV AGUILAR Physician Head Greenskeeper Current PHONE: Unknown Tamera has no Care Guidelines for this patient. Lad[place] VISIT COUNT (12 MO.) 9 TASHIA Lewis TOTAL 9 NOTE: Visits indicate total known visits. ED/UCC VISIT TRACKING (12 MO.) 12/23/2023 11:49 TASHIA Thomason [place] TYPE: Emergency COMPLAINT: - CHEST PAIN 11/09/2023 00:20 TASHIA Thomason [place] TYPE: Emergency COMPLAINT: - DIZZINESS DIAGNOSES: - Abnormal results of kidney function studies - Allergy status to serum and vaccine - Benign paroxysmal vertigo, unspecified ear - Dizziness and giddiness - Essential (primary) hypertension - halfway (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 of insulin - halfway (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 of non-steroidal anti-inflammatories (NSAID) - oysterman (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 of oral hypoglycemic drugs - Long-term (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 of injectable non-insulin antidiabetic drugs - Other chcf (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 therapy - Pure hypercholesterolemia, unspecified - Tachycardia, unspecified - Type 2 diabetes mellitus without complications 11/01/2023 23:12 T[facility] Thomason [place] TYPE: Emergency COMPLAINT: - BACK PAIN DIAGNOSES: - Allergy status to serum and vaccine - Dorsalgia, unspecified - Essential (primary) hypertension - Exposure to other specified factors, initial encounter - halfway (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 of insulin - halfway (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 of oral hypoglycemic drugs - Long-term (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 of injectable non-insulin antidiabetic drugs - Other terminal gauger (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 therapy - Pure hypercholesterolemia, unspecified [...] use of oral hypoglycemic drugs - Other chcf (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 therapy - Type 2 diabetes mellitus without complications 10/10/2023 18:36 TASHIA Thomason [place] TYPE: Emergency COMPLAINT: - DIZZINESS DIAGNOSES: - Allergy status to other drugs, medicaments and biological substances - Dizziness and giddiness - Essential (primary) hypertension - Hypomagnesemia - oysterman (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 of insulin - oysterman (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 of oral hypoglycemic drugs - Other terminal gauger (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 therapy - Type 2 diabetes mellitus without complications 09/18/2023 09:23 T[facility] Thomason [place] TYPE: Emergency COMPLAINT: - BACK PAIN DIAGNOSES: - Allergy status to serum and vaccine - Essential (primary) hypertension - Exposure to other specified factors, initial encounter - halfway (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 of insulin - halfway (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 of oral hypoglycemic drugs - Other chcf (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 therapy - Pain in thoracic [...] - Essential (primary) hypertension - Hypomagnesemia - oysterman (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 of insulin - halfway (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 of oral hypoglycemic drugs - Other chcf (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 therapy - Type 2 diabetes mellitus without complications 03/23/2023 13:43 TASHIA Thomason [place] TYPE: Emergency COMPLAINT: - L SHOULDER PAIN DIAGNOSES: - Allergy status to serum and vaccine - Essential (primary) hypertension - oysterman (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 of insulin - halfway (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 of oral hypoglycemic drugs - Other enthesopathies, not elsewhere classified - Other terminal gauger (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 therapy - Pain in left shoulder - Pure hypercholesterolemia, unspecified - Type 2 diabetes mellitus without complications 02/04/2023 23:29 TASHIA Thomason [place] TYPE: Emergency COMPLAINT: - LT KNEE PAIN DIAGNOSES: - Essential (primary) hypertension - Gout, unspecified - halfway (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 of insulin - halfway (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 of oral hypoglycemic drugs - Other terminal gauger (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 therapy - Pain in left knee - Type 2 diabetes mellitus without complications INPATIENT VISIT TRACKING (12 MO.) No inpatient visits to display in this time frame [id number]
[2023-12-23] MEDS ORDERED: ASPIRIN 81 MG CHEW PO ONE (12:30)
[2023-12-23 13:08] LABS: BASOPHILS 0.8 % (0-2); EOSINOPHILS 2.7 % (0-6); HEMATOCRIT 34.4 % (35.0-50.0); HEMOGLOBIN 11.9 g/dL (12.0-18.0); LYMPHOCYTES 25.1 % (24-44); MCH 30.3 (27-36); MCHC 34.7 g/dl (30-36); MCV 87.3 fl (81-99); MONOCYTES 5.5 % (0-12); NEUTROPHILS 65.9 % (39-80); PLATELET COUNT 259 K/uL (140-440); RBC 3.94 M/ul (4.3-5.7); RDW 14.7 (10.5-15.0)
[2023-12-23 13:26] LABS: ALBUMIN 3.7 g/dL (3.4-5.0); ALBUMIN/GLOBULIN RATIO 1.09 (1.1-2.4); ANION GAP 10.9 (7-21); BILIRUBIN, TOTAL 0.3 ng/dL (0.2-1.0); BUN/CREATININE RATIO 16.17 (6.0-28.6); CALCIUM 9.6 mg/dL (8.5-10.1); CREATININE, SERUM 2.35 mg/dL (0.70-1.30); MAGNESIUM 2.3 mg/dL (1.8-2.4); POTASSIUM 5.9 mmol/L (3.5-5.1); PROTEIN, TOTAL 7.1 g/dL (6.4-8.2)
--- NOTE | 2023-12-23 15:33 | EKG ---
[facility] [address] [place], [place] [address] Signed Normal sinus rhythm ST elevation, probably due to early repolarization Borderline ECG When compared with ECG of 09-NOV-2023 00:27, No significant change was found Confirmed by Sergio Lockhart MD ([id number]) on 12/23/2023 3:33:21 PM Electronically Signed By: SERGIO LOCKHART MD 12/23/23 1533 PATIENT NAME: ONIEL ORTIZ Electrocardiogram DATE OF : 72 PHYSICIAN: SERGIO LOCKHART MD REPORT #: [id number] REPORT IS CONFIDENTIAL AND NOT TO BE RELEASED WITHOUT AUTHORIZATION
[2023-12-23 16:00] VITALS: BP 130/74
== END 2023-12-23 16:00 | disposition left against medical advice (07) ==
LOC: ED 11:49
PROVIDERS: Emergency Medicine
DX: R07.89 Other chest pain (principal); I12.9 Hypertensive chronic kidney disease with stage 1 through stage 4 chronic kidney disease, or unspecified chronic kidney disease; E11.22 Type 2 diabetes mellitus with diabetic chronic kidney disease; N18.9 Chronic kidney disease, unspecified; E11.42 Type 2 diabetes mellitus with diabetic polyneuropathy; E78.00 Pure hypercholesterolemia, unspecified; Z88.7 Allergy status to serum and vaccine; Z79.4 Long term (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 of insulin; Z79.1 Long term (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 of non-steroidal anti-inflammatories (NSAID); Z79.85 Long-term (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 of injectable non-insulin antidiabetic drugs; Z79.84 Long term (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 of oral hypoglycemic drugs; Z79.899 Other long term (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 therapy; Z53.29 Procedure and treatment not carried out because of patient's decision for other reasons
CPT/HCPCS: 36415; 71045; 80053; 83735; 84132; 84484; 85025; 93005; 93010; 99285-25

== ENCOUNTER 2024-03-20 14:54 | Emergency (ER) | payer OTHER ==
[~2024-03-20] VITALS: Ht 172.7 cm; Wt 103.9 kg
[2024-03-20] MEDS ORDERED: DIPHTH,PERTUSS(ACELL),TET VAC 0.5 ML SYRINGE IM ONE (15:00)
--- OUTSIDE RECORDS SUMMARY | 2024-03-20 15:01 | XMS ---
PreManage Notification: ONIEL ORTIZ Security Electron Beam Photo Mask Maker Events 1 event(s) in the past 18 months Most recent security events: Elopement at [facility] 11/13/2022 22:19 - Patient eloped with IV in place. - Patient eloped before treatment completed. - Patient with suicidal and/or homicidal ideations eloped. Details: Patient LWBS CRITERIA MET - 6 ED Visits in 6 Months CARE PROVIDERS -[facility] Dentist: Waste Water Operator [facility] PHONE: [phone] -Millie- Dentist: Waste Water Operator [facility] PHONE: [phone] [facility] Current PHONE: Unknown Tamera has no Care Guidelines for this patient. Ladarius VISIT COUNT (12 MO.) 9 TASHIA Lewis TOTAL 9 NOTE: Visits indicate total known visits. ED/UCC VISIT TRACKING (12 MO.) 03/20/2024 14:54 TASHIA Thomason [place] TYPE: Emergency COMPLAINT: - FINGER LAC 12/23/2023 11:49 TASHIA Thomason [place] TYPE: Emergency COMPLAINT: - CHEST PAIN DIAGNOSES: - Allergy status to serum and vaccine - Chronic kidney disease, unspecified - Hypertensive chronic kidney disease with stage 1 through stage 4 chronic kidney disease, or unspecified chronic kidney disease - snf (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 of insulin - snf (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 of non-steroidal anti-inflammatories (NSAID) - intermediate accountant (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 of oral hypoglycemic drugs - Long-term (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 of injectable non-insulin antidiabetic drugs - Other chest pain - Other salvage determiner (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 therapy - Procedure and treatment not carried out because of patient's decision for other reasons - Pure hypercholesterolemia, unspecified - Type 2 diabetes mellitus with diabetic chronic kidney disease - Type 2 diabetes mellitus with diabetic polyneuropathy 11/09/2023 00:20 TASH[facility] Thomason [place] TYPE: Emergency COMPLAINT: - DIZZINESS DIAGNOSES: - Abnormal results of kidney function studies - Allergy status to serum and vaccine - Benign paroxysmal vertigo, unspecified ear - Dizziness and giddiness - Essential (primary) hypertension - snf (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 of insulin - snf (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 of non-steroidal anti-inflammatories (NSAID) - intermediate accountant (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 of oral hypoglycemic drugs - Long-term (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 of injectable non-insulin antidiabetic drugs - Other retirement (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 therapy - Pure hypercholesterolemia, unspecified - Tachycardia, unspecified - Type 2 diabetes mellitus without complications 11/01/2023 23:12 TASHIA Thomason [place] TYPE: Emergency COMPLAINT: - BACK PAIN DIAGNOSES: - Allergy status to serum and vaccine - Dorsalgia, unspecified - Essential (primary) hypertension - Exposure to other specified factors, initial encounter - snf (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 of insulin - intermediate accountant (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 of oral hypoglycemic drugs - Long-term (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 of injectable non-insulin antidiabetic drugs - Other retirement (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 therapy - Pure hypercholesterolemia, unspecified - Strain of muscle and tendon of back wall of thorax, initial encounter - Type 2 diabetes mellitus without complications 10/15/2023 22:43 TASHIA Thomason [place] TYPE: Emergency COMPLAINT: - WEAKNESS DIAGNOSES: - Allergy status to serum and vaccine - Dizziness and giddiness - Essential (primary) hypertension - Hypomagnesemia - intermediate accountant (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 of insulin - snf (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 of oral hypoglycemic drugs - Other retirement (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 therapy - Type 2 diabetes mellitus without complications 10/10/2023 18:36 [facility] [place] TYPE: Emergency COMPLAINT: - DIZZINESS DIAGNOSES: - Allergy status to other drugs, medicaments and biological substances - Dizziness and giddiness - Essential (primary) hypertension - Hypomagnesemia - snf (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 of insulin - snf (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 of oral hypoglycemic drugs - Other retirement (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 therapy - Type 2 diabetes mellitus without complications 09/18/2023 09:23 T[facility] Thom[facility] [place] TYPE: Emergency COMPLAINT: - BACK PAIN DIAGNOSES: - Allergy status to serum and vaccine - Essential (primary) hypertension - Exposure to other specified factors, initial encounter - intermediate accountant (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 of insulin - intermediate accountant (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 of oral hypoglycemic drugs - Other retirement (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 therapy - Pain in thoracic [...] - Essential (primary) hypertension - Hypomagnesemia - snf (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 of insulin - intermediate accountant (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 of oral hypoglycemic drugs - Other retirement (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 therapy - Type 2 diabetes mellitus without complications 03/23/2023 13:43 TASHIA Thomason [place] TYPE: Emergency COMPLAINT: - L SHOULDER PAIN DIAGNOSES: - Allergy status to serum and vaccine - Essential (primary) hypertension - intermediate accountant (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 of insulin - snf (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 of oral hypoglycemic drugs - Other enthesopathies, not elsewhere classified - Other salvage determiner (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 therapy - Pain in left shoulder - Pure hypercholesterolemia, unspecified - Type 2 diabetes mellitus without complications INPATIENT VISIT TRACKING (12 MO.) No inpatient visits to display in this time frame [id number]
[2024-03-20 16:38] VITALS: BP 130/84
== END 2024-03-20 16:38 | disposition home or self-care (01) ==
LOC: ED 14:54
DX: S61.214A Laceration without foreign body of right ring finger without damage to nail, initial encounter (principal); E78.00 Pure hypercholesterolemia, unspecified; E11.9 Type 2 diabetes mellitus without complications; I10 Essential (primary) hypertension; W26.8XXA Contact with other sharp object(s), not elsewhere classified, initial encounter; Z79.4 Long term (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 of insulin; Z79.84 Long term (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 of oral hypoglycemic drugs; Z88.1 Allergy status to other antibiotic agents
CPT/HCPCS: 90471; 90715; 99282-25

== ENCOUNTER 2024-04-09 21:14 | Emergency (ER) | payer OTHER ==
[~2024-04-09] VITALS: Ht 172.7 cm; Wt 107.0 kg
--- OUTSIDE RECORDS SUMMARY | 2024-04-09 21:18 | XMS ---
PreManage Notification: ONIEL ORTIZ Security Press Operator Helper Events 1 event(s) in the past 18 months Most recent security events: Elopement at [facility] 11/13/2022 22:19 - Patient eloped with IV in place. - Patient eloped before treatment completed. - Patient with suicidal and/or homicidal ideations eloped. Details: Patient LWBS CRITERIA MET - 6 ED Visits in 6 Months - [facility] - 2 Visits in 30 Days CARE PROVIDERS -[facility] Dentist: Cinder Dump Crane Operator [facility] PHONE: [phone] -Millie- Dentist: Cinder Dump Crane Operator [facility] PHONE: [phone] KENYON JOHNSTON [facility] [place] Current PHONE: Unknown Tamera has no Care Guidelines for this patient. [place] VISIT COUNT (12 MO.) 9 TASHIA Lewis TOTAL 9 NOTE: Visits indicate total known visits. ED/UCC VISIT TRACKING (12 MO.) 04/09/2024 21:15 TASHIA Thomason [place] TYPE: Emergency COMPLAINT: - CHEST PAIN 03/20/2024 14:54 TASHIA Thomason [place] TYPE: Emergency COMPLAINT: - FINGER LAC DIAGNOSES: - Allergy status to other antibiotic agents - Contact with other sharp object(s), not elsewhere classified, initial encounter - Essential (primary) hypertension - Laceration without foreign body of right ring finger without damage to nail, initial encounter - [facility] (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 of insulin - oil heaterman (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 of oral hypoglycemic drugs - Pure hypercholesterolemia, unspecified - Type 2 diabetes mellitus without complications 12/23/2023 11:49 TASHIA Thomason [place] TYPE: Emergency COMPLAINT: - CHEST PAIN DIAGNOSES: - Allergy status to serum and vaccine - Chronic kidney disease, unspecified - Hypertensive chronic kidney disease with stage 1 through stage 4 chronic kidney disease, or unspecified chronic kidney disease - [facility] (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 of insulin - oil heaterman (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 of non-steroidal anti-inflammatories (NSAID) - [facility] (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 of oral hypoglycemic drugs - Long-term (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 of injectable non-insulin antidiabetic drugs - Other chest pain - Other correction (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 therapy - Procedure and treatment [...] and giddiness - Essential (primary) hypertension - [facility] (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 of insulin - oil heaterman (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 of non-steroidal anti-inflammatories (NSAID) - [facility] (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 of oral hypoglycemic drugs - Long-term (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 of injectable non-insulin antidiabetic drugs - Other long term care pharmacist (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 therapy - Pure hypercholesterolemia, unspecified - Tachycardia, unspecified - Type 2 diabetes mellitus without complications 11/01/2023 23:12 TASHIA Thomason [place] TYPE: Emergency COMPLAINT: - BACK PAIN DIAGNOSES: - Allergy status to serum and vaccine - Dorsalgia, unspecified - Essential (primary) hypertension - Exposure to other specified factors, initial encounter - oil heaterman (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 of insulin - oil heaterman (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 of oral hypoglycemic drugs - Long-term (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 of injectable non-insulin antidiabetic drugs - Other correction (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 therapy - Pure hypercholesterolemia, unspecified - Strain of muscle and tendon of back wall of thorax, initial encounter - Type 2 diabetes mellitus without complications 10/15/2023 22:43 TASHIA Thomason [place] TYPE: Emergency COMPLAINT: - WEAKNESS DIAGNOSES: - Allergy status to serum and vaccine - Dizziness and giddiness - Essential (primary) hypertension - Hypomagnesemia - oil heaterman (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 of insulin - oil heaterman (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 of oral hypoglycemic drugs - Other long term care pharmacist (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 therapy - Type 2 diabetes mellitus without complications 10/10/2023 18:36 TASHIA Thomason [place] TYPE: Emergency COMPLAINT: - DIZZINESS DIAGNOSES: - Allergy status to other drugs, medicaments and biological substances - Dizziness and giddiness - Essential (primary) hypertension - Hypomagnesemia - oil heaterman (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 of insulin - [facility] (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 of oral hypoglycemic drugs - Other correction (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 therapy - Type 2 diabetes mellitus without complications 09/18/2023 09:23 TASHIA Thomason [place] TYPE: Emergency COMPLAINT: - BACK PAIN DIAGNOSES: - Allergy status to serum and vaccine - Essential (primary) hypertension - Exposure to other specified factors, initial encounter - oil heaterman (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 of insulin - [facility] (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 of oral hypoglycemic drugs - Other long term care pharmacist (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 therapy - Pain in thoracic [...] - Essential (primary) hypertension - Hypomagnesemia - oil heaterman (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 of insulin - oil heaterman (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 of oral hypoglycemic drugs - Other long term care pharmacist (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 therapy - Type 2 diabetes mellitus without complications INPATIENT VISIT TRACKING (12 MO.) No inpatient visits to display in this time frame [email or web address]
[2024-04-09] MEDS ORDERED: DAPAGLIFLOZIN10 MG PO (21:23)
[2024-04-09] MEDS ORDERED: OXYBUTYNIN CHLOR5 M1 PO (21:23)
[2024-04-09 21:29] LABS: BASOPHILS 1.4 % (0-2)
[2024-04-09 21:32] LABS: LYMPHOCYTES 31.8 % (24-44); MCH 28.8 (27-36); MCHC 34.2 g/dl (30-36); MCV 84.3 fl (81-99); MONOCYTES 6.8 % (0-12); PLATELET COUNT 235 K/uL (140-440); RBC 4.86 M/ul (4.3-5.7); RDW 13.8 (10.5-15.0)
[2024-04-09 21:45] LABS: ALBUMIN 3.4 g/dL (3.4-5.0); ANION GAP 15.9 (7-21); BILIRUBIN, TOTAL 0.2 ng/dL (0.2-1.0); BUN/CREATININE RATIO 23.7 (6.0-28.6); CALCIUM 9.5 mg/dL (8.5-10.1); CREATININE, SERUM 1.35 mg/dL (0.70-1.30); MAGNESIUM 1.6 mg/dL (1.8-2.4); POTASSIUM 3.9 mmol/L (3.5-5.1); PROTEIN, TOTAL 6.8 g/dL (6.4-8.2)
[2024-04-09] MEDS ORDERED: LIDOCAINE & ANTACID 35 ML BTL PO ONE (23:45)
[2024-04-09] MEDS ORDERED: ONDANSETRON 4 MG TAB ODT SL ONE (23:45)
[2024-04-10] VITALS: BP 133/75
--- NOTE | 2024-04-10 23:09 | EKG ---
[facility] [address] [facility] [place] [address] Signed Normal sinus rhythm Normal ECG When compared with ECG of 23-DEC-2023 12:06, No significant change was found Confirmed by Yudith Meyer MD () on 04/10/2024 11:09:25 PM Electronically Signed By: YUDITH MEYER MD 04/10/24 2309 PATIENT NAME: ONIEL ORTIZ ALEX Electrocardiogram DATE OF : 72 PHYSICIAN: YUDITH MEYER MD REPORT #: [id number] REPORT IS CONFIDENTIAL AND NOT TO BE RELEASED WITHOUT AUTHORIZATION
[2024-04-17] MEDS ORDERED: AIRSUPRA 90-810.7 GM (12:19)
[2024-04-17] MEDS ORDERED: MULTIVITAMINS1 EAC8 PO (12:23)
[2024-04-17] MEDS ORDERED: PAIN RELIEF500 M1 PO (12:23)
== END 2024-04-10 | disposition home or self-care (01) ==
LOC: ED 21:14
PROVIDERS: Emergency Medicine
DX: R07.89 Other chest pain (principal); E11.9 Type 2 diabetes mellitus without complications; I10 Essential (primary) hypertension; Z79.899 Other long term (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 therapy; Z79.4 Long term (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 of insulin; Z88.7 Allergy status to serum and vaccine
CPT/HCPCS: 36415; 71045; 80053; 83735; 84484; 85025; 93005; 93010; 99285-25; A9270

== ENCOUNTER 2024-05-09 20:52 | Emergency (ER) | payer OTHER ==
[~2024-05-09] VITALS: Ht 172.7 cm; Wt 100.0 kg
[~2024-05-09 20:52] MED LIST changes: +AIRSUPRA 90-810.7 GM INH; +DAPAGLIFLOZIN10 MG PO; +DEXCOM G7 SENS1 EACH SUB-Q; +FENOFIBRATE48 MG PO; +INSULIN GL100 UNIT/2 SUB-Q; +INSULIN LI100 UNIT/2 SUB-Q; +LISINOPRIL20 MG PO; +MAG-OXIDE400 MG PO; +METFORMIN HCL1000 MG PO; +MULTIVITAMINS1 EAC8 PO; +OXYBUTYNIN CHLOR5 M1 PO; +PAIN RELIEF500 M1 PO
--- OUTSIDE RECORDS SUMMARY | 2024-05-09 20:58 | XMS ---
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 - Patient eloped before treatment completed. - Patient with suicidal and/or homicidal ideations eloped. Details: Patient LWBS CRITERIA MET - [facility] - 2 Visits in 30 Days CARE PROVIDERS -, [facility] Dentist: Assembler Brazer [facility] PHONE: [phone] -Millie- Dentist: Assembler Brazer [facility] PHONE: [phone] KENYON JOHNSTON [facility] [place] Current PHONE: Unknown Tamera has no Care Guidelines for this patient. [place] VISIT COUNT (12 MO.) 10 TASHIA Lewis TOTAL 10 NOTE: Visits indicate total known visits. 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 - Type 2 diabetes mellitus without complications 03/20/2024 14:54 TASHIA Thomason [place] TYPE: Emergency COMPLAINT: - FINGER LAC DIAGNOSES: - Allergy status to other antibiotic agents - Contact with other sharp object(s), not elsewhere classified, initial encounter - Essential (primary) hypertension - Laceration without foreign body of right ring finger without damage to nail, initial encounter - [facility] (current) use of insulin - middle or intermediate 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 (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 of oral hypoglycemic drugs - Pure hypercholesterolemia, unspecified - Type 2 diabetes mellitus without complications 12/23/2023 11:49 TASHIA Thomason [place] TYPE: Emergency COMPLAINT: - CHEST PAIN DIAGNOSES: - Allergy status to serum and vaccine - Chronic kidney disease, unspecified - Hypertensive chronic kidney disease with stage 1 through stage 4 chronic kidney disease, or unspecified chronic kidney disease - 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 - middle or intermediate 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 (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 of non-steroidal anti-inflammatories (NSAID) - middle or intermediate 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 (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 of oral hypoglycemic drugs - Long-term (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 of injectable non-insulin antidiabetic drugs - Other chest pain - Other terminal 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 - Procedure and treatment [...] and giddiness - Essential (primary) hypertension - [facility] (current) use of insulin - [facility] (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 of non-steroidal anti-inflammatories (NSAID) - [facility] (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 of oral hypoglycemic drugs - Long-term (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 of injectable non-insulin antidiabetic drugs - 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 terminal 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 - Pure hypercholesterolemia, unspecified - Tachycardia, unspecified - Type 2 diabetes mellitus without complications 11/01/2023 23:12 TASHIA Thomason [place] TYPE: Emergency COMPLAINT: - BACK PAIN DIAGNOSES: - Allergy status to serum and vaccine - Dorsalgia, unspecified - Essential (primary) hypertension - Exposure to other specified factors, initial encounter - [facility] (current) use of insulin - [facility] (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 of oral hypoglycemic drugs - Long-term (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 of injectable non-insulin antidiabetic drugs - Other [facility] (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 therapy - Pure hypercholesterolemia, unspecified - Strain of muscle and tendon of back wall of thorax, initial encounter - Type 2 diabetes mellitus without complications 10/15/2023 22:43 TASHIA Thomason [place] TYPE: Emergency COMPLAINT: - WEAKNESS DIAGNOSES: - Allergy status to serum and vaccine - Dizziness and giddiness - Essential (primary) hypertension - Hypomagnesemia - [facility] (current) use of insulin - middle or intermediate 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 (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 of oral hypoglycemic drugs - Other terminal 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 - Type 2 diabetes mellitus without complications 10/10/2023 18:36 TASHIA Thomason [place] TYPE: Emergency COMPLAINT: - DIZZINESS DIAGNOSES: - Allergy status to other drugs, medicaments and biological substances - Dizziness and giddiness - Essential (primary) hypertension - Hypomagnesemia - 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 - middle or intermediate 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 (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 of oral hypoglycemic drugs - Other terminal 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 - Type 2 diabetes mellitus without complications 09/18/2023 09:23 TASHIA Thomason [place] TYPE: Emergency COMPLAINT: - BACK PAIN DIAGNOSES: - Allergy status to serum and vaccine - Essential (primary) hypertension - Exposure to other specified factors, initial encounter - [facility] (current) use of insulin - middle or intermediate 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 (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 of oral hypoglycemic drugs - Other [facility] (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 therapy - Pain in thoracic spine - Strain of muscle and tendon of back wall of thorax, initial encounter - Type 2 diabetes mellitus without complications 08/21/2023 13:[address] 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
[2024-05-09] MEDS ORDERED: methylPREDNISolone 4 MG HOME.PACK PO ONE (21:30)
[2024-05-09 21:45] VITALS: BP 138/87
== END 2024-05-09 21:50 | disposition home or self-care (01) ==
LOC: ED 20:52
DX: M65.4 Radial styloid tenosynovitis [de Quervain] (principal); G56.01 Carpal tunnel syndrome, right upper limb; E11.9 Type 2 diabetes mellitus without complications; E78.00 Pure hypercholesterolemia, unspecified; I10 Essential (primary) hypertension; Z88.7 Allergy status to serum and vaccine; Z91.048 Other nonmedicinal substance allergy status; Z79.84 Long term (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 of oral hypoglycemic drugs; Z79.4 Long term (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 of insulin; Z79.85 Long-term (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 of injectable non-insulin antidiabetic drugs; Z79.899 Other long term (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 therapy
CPT/HCPCS: 99283

== ENCOUNTER 2024-05-19 07:21 | Day surgery (SDC) | payer OTHER ==
[~2024-05-19] VITALS: Ht 172.7 cm; Wt 104.0 kg
[~2024-05-19 07:21] MED LIST changes: +CEFAZOLIN SODIUM 2 GM/20 ML SYR IV SCH; +IBLOOD GLUCOSE TEST STRIP 1 EA TEST VI PRN; +LACTATED RINGER'S 1,000 ML IV SCH; +LIDOCAINE HCL 1% 5 ML SDV INJ ONE
[2024-05-19 07:41] VITALS: BP 150/98
[2024-05-19] MEDS ORDERED: IBUPROFEN200 M1 PO (07:46)
--- NOTE | 2024-05-19 08:03 | NUR ---
CLAUDETTE KIRKLAND AT AND IS [facility]. [facility] HAS DEXCOM ON ABDOMINE.
[2024-05-19] MEDS ORDERED: HYDROCODONE/ACETA 5/325 TAB PO PRN (08:30)
[2024-05-19] MEDS ORDERED: ondansetron HCL 4 MG/2 ML VIAL ONE (08:36)
[2024-05-19] MEDS ORDERED: fentaNYL citrate 100 MCG/2 ML VIAL ONE (08:36)
[2024-05-19] MEDS ORDERED: LIDOCAINE HCL 0.5% 50 ML SDV ONE (08:36)
[2024-05-19] MEDS ORDERED: KETOROLAC TROMETHAMINE 30 MG/ML VIAL ONE (08:36)
[2024-05-19] MEDS ORDERED: propofoL 200 MG/20 ML VIAL ONE (08:36)
[2024-05-19] MEDS ORDERED: DEXAMETHASONE SOD PHOS 4 MG/ML VIAL ONE (08:38)
[2024-05-19] MEDS ORDERED: HYDROCODON-ACE1 EA10 PO (09:19)
--- NOTE | 2024-05-19 09:31 | NUR ---
05/19/24 0931 Jeanette Wild 0918-PT ARRIVES TO PACU VIA STRETCHER, PT RESTING SEMI FOWLERS, PT NOT RESPONISVE TO NOXIOUS STIMULI, OPA IN PLACE, VSS ON 6L VIA MASK, RR EVEN AND UNLABORED. LT WRIST ELEVATED ON PILLOW AND ICE PACK APPLIED. 927-PT AWAKENS TO VOICE, OPA REMOVED, AND TITRATED TO RA. VS REMAIN STABLE. PT DENIES PAIN OR NAUSEA.
[2024-05-19 09:46] VITALS: BP 114/87
--- NOTE | 2024-05-21 15:03 | OR ---
[facility] [address], [place] [address] Signed DATE OF OPERATION: 05/19/2024 SURGEON: Simon Mendieta MD PREOPERATIVE DIAGNOSIS: Carpal tunnel syndrome, left. POSTOPERATIVE DIAGNOSIS: Carpal tunnel syndrome, left. PROCEDURE PERFORMED: Left carpal tunnel release. SUPERVISOR MOTORCYCLE REPAIR SHOP: None. ANESTHESIA: Dayami block. TOURNIQUET TIME: 20 minutes. BRIEF HISTORY: Barry is a 54-year-old gentleman with pain and numbness in his hand. Nerve conduction studies were consistent with significant carpal tunnel. Risks and benefits of operative treatment were discussed with him and he elected to proceed. DESCRIPTION OF PROCEDURE: Once consent was obtained, he was taken to the operating room. After adequate anesthesia, he was left on the surgery bed with a hand table. The arm was prepped and draped in a standard sterile fashion. The carpal tunnel was approached through a 1.5 cm incision in the distal wrist crease. This was carried through skin and subcutaneous tissue and directly down on the transverse carpal ligament. Under loupe magnification, this was dissected free of overlying soft tissue proximally and distally. It was then released with tenotomy scissors proximally a cm and distally to the distal extent. This was then palpated using the Index to confirm complete release. The wound was then copiously irrigated with normal saline and closed with 3-0 nylon, injected with 6 mL 0.25% plain Marcaine. The wound was dressed with bacitracin, Adaptic, 4 x 8s, and gauze. He tolerated the procedure well. All sponge, needle, and instrument counts were correct. Electronically Signed By: SIMON MENDIETA MD 05/21/24 1503 PATIENT NAME: ONIEL ORTIZ OPERATIVE REPORT DATE OF : 72 REPORT #: [id number] PHYSICIAN: SIMON MENDIETA MD PCP: ZAK NIETO MD REPORT IS CONFIDENTIAL AND NOT TO BE RELEASED WITHOUT AUTHORIZATION [facility] [address] [place] [id number] Signed Simon Mendieta MD /MODL /[id number] Copies: ~ Electronically Signed By: SIMON MENDIETA MD 05/21/24 1503 PATIENT NAME: ONIEL ORTIZ OPERATIVE REPORT DATE OF : 72 REPORT #: [id number] PHYSICIAN: SIMON MENDIETA MD PCP: ZAK NIETO MD REPORT IS CONFIDENTIAL AND NOT TO BE RELEASED WITHOUT AUTHORIZATION
== END 2024-05-19 09:55 | disposition home or self-care (01) ==
LOC: DS 07:21
PROVIDERS: ATTEND Specialist
PROC: 01N50ZZ Release Median Nerve, Open Approach (ICD-10-PCS; principal; 2024-05-19 09:15)
DX: G56.02 Carpal tunnel syndrome, left upper limb (principal); I10 Essential (primary) hypertension; E11.21 Type 2 diabetes mellitus with diabetic nephropathy; M17.12 Unilateral primary osteoarthritis, left knee; G47.33 Obstructive sleep apnea (adult) (pediatric); N32.81 Overactive bladder; K21.9 Gastro-esophageal reflux disease without esophagitis; Z87.891 Personal history of nicotine dependence; Z79.4 Long term (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 of insulin; Z79.84 Long term (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 of oral hypoglycemic drugs; Z79.899 Other long term (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 therapy; Z88.7 Allergy status to serum and vaccine; Z86.16 Personal history of COVID-19
CPT/HCPCS: 01810; J0690; J1100; J1885; J2405; J2704; J3010; J7121

== ENCOUNTER 2024-10-24 03:42 | Emergency (ER) | payer OTHER ==
[~2024-10-24] VITALS: Ht 172.7 cm; Wt 104.0 kg
[~2024-10-24 03:42] MED LIST changes: -CEFAZOLIN SODIUM 2 GM/20 ML SYR IV SCH; +HYDROCODON-ACE1 EA10 PO; -IBLOOD GLUCOSE TEST STRIP 1 EA TEST VI PRN; +IBUPROFEN200 M1 PO; -LACTATED RINGER'S 1,000 ML IV SCH; -LIDOCAINE HCL 1% 5 ML SDV INJ ONE
[2024-10-24] MEDS ORDERED: ALLOPURINOL100 MG PO (03:58)
[2024-10-24] MEDS ORDERED: LANTUS SOL100 UNIT/1 SUB-Q (03:58)
[2024-10-24] MEDS ORDERED: CYCLOBENZAPRINE HCL 10 MG HOME.PACK PO ONE (04:15)
[2024-10-24] MEDS ORDERED: CYCLOBENZAPRINE10 MG PO (04:17)
[2024-10-24 04:40] VITALS: BP 125/93
== END 2024-10-24 04:40 | disposition home or self-care (01) ==
LOC: ED 03:42
DX: M54.89 Other dorsalgia (principal); G89.29 Other chronic pain; E11.9 Type 2 diabetes mellitus without complications; E78.00 Pure hypercholesterolemia, unspecified; I10 Essential (primary) hypertension; Z88.7 Allergy status to serum and vaccine; Z79.4 Long term (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 of insulin; Z79.84 Long term (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 of oral hypoglycemic drugs; Z79.85 Long-term (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 of injectable non-insulin antidiabetic drugs; Z79.899 Other long term (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 therapy
CPT/HCPCS: 99283